=== PATIENT | female | born 1955 | race Caucasian/White ===

== ENCOUNTER 2024-05-29 10:42 | Observation (INO) | payer MEDICARE ==
[2024-05-29 11:51] LABS: Absolute Neutrophil Ct (ANC) 6.43 x10^3/uL (1.56-6.13); BASOPHIL % 0.1 % (0.1-1.2); Basophil (Absolute #) 0.01 x10^3/uL (0.01-0.08); Eosinophil % 0.3 % (0.7-5.8); Eosinophil (Absolute #) 0.02 x10^3/uL (0.04-0.36); Hematocrit 28.4 % (34.1-44.9); Hemoglobin 8.7 g/dL (11.2-15.7); IMMATURE GRAN % 1.3 % (0.001-0.429); Lymphocyte (Absolute #) 0.57 x10^3/uL (1.18-3.74); Lymphocytes % 7.6 % (19.3-51.7); Mean Cell Volume 91.9 fL (79.4-94.8); Mean Corpuscular Hemoglobin 28.2 pg (25.6-32.2); Mean Corpuscular Hgb Concent. 30.6 g/dL (32.2-35.5); Mean Platelet Volume 9.2 fL (9.4-12.3); Monocyte (Absolute #) 0.36 x10^3/uL (0.24-0.86); Monocytes % 4.8 % (4.7-12.5); Neutrophil % 85.9 % (34.0-71.1); Platelet Count 194 x10^3/uL (182-369); Red Blood Count 3.09 x10^6/uL (3.93-5.22); Red Cell Distribution Width 16.3 % (11.7-14.4); White Blood Count 7.5 x10^3/uL (3.98-10.04)
[2024-05-29 12:26] LABS: ALBUMIN 3.1 g/dL (3.5-5.0); ANION GAP 6.8 MEQ/L (5-15); BILIRUBIN,TOTAL 0.4 mg/dL (0.2-1.3); Calcium 8.2 mg/dL (8.4-10.2); Creatinine 1 0.81 mg/dL (0.52-1.04); Potassium 3.7 mmol/L (3.5-5.1); Total Protein 5.4 g/dL (6.3-8.2)
--- NOTE | 2024-05-29 12:31 | ERPHSYRPT ---
- History of Present Illness Time Seen by Provider: 05/29/24 10:45 Source: patient, EMS Patient Subjective Stated Complaint: PATIENT REPORTS SHE IS HERE FOR AFIB Triage Nursing Assessment: PATIENT IS ALERT & ORIENTED X3, PATIENT HAS EQUAL INTACT PULSES BILATERAL UPPER AND LOWER EXTREMITIES. PATIENT DOES USE ACCESSORY MUSCLES FOR BREATHING. PATIENT NOTES SHORTNESS OF BREATH AT BASELINE WITH NO CHANGE. 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 PATIENT REPORTS 9/10 SHARP PAIN TO GENERALIZED RIGHT LEG THAT STARTED THIS MORNING, UNKNOWN TIME. PATIENT REPORTS SON IS MENTALLY AND PHYSICALLY ABUSIVE TO HER. Physician History: 69 years old female with history of COPD with chronic respiratory failure on 6 L oxygen, atrial fibrillation on Eliquis, was recently discharged from hospital in [place] is brought in the ER as patient and her son are having arguments and she is unable to take care of herself. Patient reports "I have A-fib". Has shortness of breath at her baseline which according to her is not any worse than usual. She does have wheezing and some accessory muscle use. No fever or c hills reported. No abdominal pain nausea or vomiting. Patient is not a good historian and history is limited. Allergies/Adverse Reactions: latex Allergy (Unknown, Verified 05/29/24 13:52) Home Medications: ARIPiprazole [Aripiprazole] 10 mg PO DAILY 05/29/24 [History] Albuterol Sulfate [Albuterol Sulfate Hfa] 2 puffs IH Q4-6HPRN PRN 05/29/24 [History] Albuterol/Ipratropium 3ml Neb* [DUONEB 0.5-3 MG/3 ml Neb] 3 ml IH Q6-8HPRN PRN 05/29/24 [History] Apixaban [Eliquis] 5 mg PO BID 05/29/24 [History] Atorvastatin Calcium 40 mg PO DAILY 05/29/24 [History] Budesonide/Formoterol Fumarate [Budesonide-Formoterol 160-4.5] 10.2 gm IH BID 05/29/24 [History] Bumetanide 1 mg [Bumex 1 mg] 1 mg PO DAILY 05/29/24 [History] Clopidogrel Bisulfate [Clopidogrel] 75 mg PO DAILY 05/29/24 [History] Empagliflozin [Jardiance] 10 mg PO DAILY 05/29/24 [History] Ferrous Sulfate [Ferosul] 325 mg PO BREAKFAST 05/29/24 [History] Fluoxetine HCl 40 mg PO DAILY 05/29/24 [History] Levetiracetam [Keppra] 500 mg PO BID 05/29/24 [History] Lisinopril 20 mg [Zestril 20 MG] 20 mg PO DAILY 05/29/24 [History] Metoprolol Tartrate 25 mg [Lopressor 25MG Tab] 25 mg PO BID 05/29/24 [History] PANTOPRAZOLE 40 mg Tablet [Protonix 40MG Tablet] 40 mg PO BID 05/29/24 [History] Prednisone 10 mg [Deltasone 10 mg] 10 mg PO UD 05/29/24 [History] Quetiapine Fumarate [Seroquel] 200 mg PO HS 05/29/24 [History] Roflumilast 500 mcg PO DAILY 05/29/24 [History] Tizanidine HCl 4 mg [Zanaflex 4 MG] 4 mg PO BID 05/29/24 [History] Travel Risk - International Travel Have you traveled outside of the country in past 3 weeks: No - Emerging Infectious Disease Are you exhibiting symptoms associated with any current EIDs: No - Review of Systems Constitutional: Fatigue, Weakness Eyes: No Symptoms Ears, Nose, & Throat: Nose Congestion Respiratory: Cough, Dyspnea, Dyspnea on Exertion (VELAZQUEZ), Wheezing Cardiac: Palpitations Abdominal/Gastrointestinal: No Symptoms Genitourinary Symptoms: No Symptoms Musculoskeletal: Arthralgias Endocrine: No Symptoms - Past Medical History Neurological History: Seizures ENT History: Macular Degeneration Cardiac History: Other Musculoskeletal History: Osteoporosis Other Medical History: AFIB - Past Surgical History Past Surgical History: Yes Musculoskeletal: Other Other Surgical History: ANKLE SURGERY - Social History Smoking Status: Former smoker Exposure to second hand smoke: Yes Drug Use: none - Social Determinants of Health Will the patient participate in the screening: Yes Do you worry about a steady place to live?: No Do you have any problems with any of the following?: No known problems In the past 12 months,have you had to go without utilities?: Yes Transportation Issues: Yes Has anyone in your support network made you feel unsafe?: Yes Have you or anyone in your house had to go w/o enough food: Yes Comment: PATIENT REPORTS SON IS A HARM TO HER PHYSICAL AND MENTAL SAFETY - Nursing Vital Signs Nursing Vital Signs: Initial Vital Signs Temperature 96.9 F 05/29/24 10:45 Pulse Rate 82 05/29/24 10:45 Respiratory Rate 24 05/29/24 10:45 Blood Pressure 104/59 05/29/24 10:45 O2 Sat by Pulse Oximetry 100 05/29/24 10:45 Pain Scale Pain Intensity 0 - Physical Exam General Appearance: mild distress, alert Eye Exam: PERRL/EOMI Ears, Nose, Throat Exam: pharyngeal erythema Neck Exam: normal inspection, supple, full range of motion Respiratory Exam: diminished breath sounds, accessory muscle use, rhonchi, wheezing Cardiovascular Exam: regular rate/rhythm, normal heart sounds Gastrointestinal/Abdomen Exam: soft, normal bowel sounds, No tenderness Extremity Exam: normal inspection Neurologic Exam: alert, oriented x 3, cooperative Skin Exam: normal color SpO2 Interpretation: O2 applied SpO2: 100 O2 Delivery: Nasal Cannula (6 L) Ordered Tests: Active Orders 24 hr Category Date Time Status EKG-ER Only STAT Care 05/29/24 12:15 Active Townsend [Catheter-Redfield Townsend] STAT Care 05/29/24 13:25 Active IV Insertion STAT Care 05/29/24 12:15 Active ACO SDOH Referral ONCE Cons 05/29/24 11:52 Active CHEST 1 VIEW (PORTABLE) Stat Exams 05/29/24 12:16 Completed BLOOD CULTURE Stat Lab 05/29/24 12:54 Received BNPII [NT PRO BNPII] Stat Lab 05/29/24 11:22 Completed CBC W DIFF Stat Lab 05/29/24 11:30 Completed CMP Stat Lab 05/29/24 11:30 Completed CULTURE,URINE Stat Lab 05/29/24 13:34 Received Lactic Acid Stat Lab 05/29/24 12:45 Completed MAGNESIUM Stat Lab 05/29/24 11:30 Completed TROPONIN Q4H Lab 05/29/24 12:54 Completed TROPONIN Q4H Lab 05/29/24 16:15 Ordered TROPONIN Q4H Lab 05/29/24 20:15 Ordered UA W/RFX UR CULTURE Stat Lab 05/29/24 13:34 Completed Transfer Order Routine Transfer 05/29/24 Ordered Medication Summary Generic Name Dose Route Start Last Admin Trade Name Freq PRN Reason Stop Dose Admin Magnesium Sulfate/Dextrose 100 mls @ 100 mls/hr 05/29/24 12:45 05/29/24 16:13 Magnesium 1 Gm / 100 Ml D5w IV 05/29/24 14:44 Infused Q1H MARLY Infusion Discontinued Medications Generic Name Dose Route Start Last Admin Trade Name Brian PRN Reason Stop Dose Admin Albuterol/Ipratropium 3 ml 05/29/24 12:16 05/29/24 12:43 Ipratropium/Albuterol Sulfate 3 Ml Ampul.Neb IH 05/29/24 12:17 3 ml STAT ONE Administration Albuterol/Ipratropium Confirm 05/29/24 12:42 Ipratropium/Albuterol Sulfate 3 Ml Ampul.Neb Administered 05/29/24 12:43 Dose 3 ml IH .STK-MED ONE Sodium Chloride 500 mls @ 500 mls/hr 05/29/24 12:46 05/29/24 14:14 Sodium Chloride 0.9% 500 Ml IV 05/29/24 13:45 Infused .Q1H ONE Infusion Sodium Chloride Confirm 05/29/24 13:04 Sodium Chloride 0.9% 500 Ml Administered 05/29/24 13:05 Dose 500 mls @ ud IV .STK-MED ONE Ceftriaxone Sodium 2 gm in 100 mls @ 200 mls/hr 05/29/24 14:56 05/29/24 16:13 Rocephin 2 Gm/100 Ml Nacl IV 05/29/24 15:25 Infused STAT ONE Infusion Ceftriaxone Sodium Confirm 05/29/24 15:27 Rocephin 2 Gm/100 Ml Nacl Administered 05/29/24 15:28 Dose 2 gm in 100 mls @ ud IV .STK-MED ONE Lab/Rad Data: Laboratory Result Diagrams 05/29/24 11:30 05/29/24 11:30 Laboratory Results 05/29/24 05/29/24 05/29/24 Range/Units 13:34 13:05 12:54 WBC (3.98-10.04) x10^3/uL RBC (3.93-5.22) x10^6/uL Hgb (11.2-15.7) g/dL Hct (34.1-44.9) % MCV (79.4-94.8) fL MCH (25.6-32.2) pg MCHC (32.2-35.5) g/dL RDW (11.7-14.4) % Plt Count (182-369) x10^3/uL MPV (9.4-12.3) fL Gran % (34.0-71.1) % Immature Gran % (Auto) (0.001-0.429) % Nucleat RBC Rel Count (0.00-0.2) % Eos # (Auto) (0.04-0.36) x10^3/uL Immature Gran # (Auto) (0.001-0.031) x10^3u/L Absolute Lymphs (auto) (1.18-3.74) x10^3/uL Absolute Monos (auto) (0.24-0.86) x10^3/uL Absolute Nucleated RBC (0.00-0.012) x10^3u/L Lymphocytes % (19.3-51.7) % Monocytes % (4.7-12.5) % Eosinophils % (0.7-5.8) % Basophils % (0.1-1.2) % Absolute Granulocytes (1.56-6.13) x10^3/uL Basophils # (0.01-0.08) x10^3/uL Sodium (135-145) mmol/L Potassium (3.5-5.1) mmol/L Chloride (98-107) mmol/L Carbon Dioxide (22-30) mmol/L Anion Gap (5-15) MEQ/L BUN (7-17) mg/dL Creatinine (0.52-1.04) mg/dL Estimated GFR ML/MIN Glucose (74-106) mg/dL Lactic Acid (0.4-2.0) Calcium (8.4-10.2) mg/dL Magnesium (1.6-2.3) mg/dL Total Bilirubin (0.2-1.3) mg/dL AST (14-36) U/L ALT (0-35) U/L Alkaline Phosphatase (38-126) U/L Troponin I 0.027 (0.000-0.033) ng/mL NT-Pro-B Natriuret Pep (<300) pg/mL Serum Total Protein (6.3-8.2) g/dL Albumin (3.5-5.0) g/dL Urine Color Yellow (Yellow) Urine Appearance Clear (Clear) Urine pH 5.5 (4.6-8.0) Ur Specific [place] 1.015 (1.005-1.030) Urine Protein Trace A (Negative) Urine Glucose (UA) 100 A (Negative) mg/dL Urine Ketones Negative (Negative) Urine Blood Moderate A (Negative) Urine Nitrite Negative (Negative) Urine Bilirubin Negative (Negative) Urine Urobilinogen 0.2 (0.2) mg/dL Ur Leukocyte Esterase Moderate A (Negative) U Hyaline Cast (Auto) 3-5 A (0-2) /LPF Urine Microscopic RBC 3-5 (0-5) /HPF Urine Microscopic WBC 11-20 A (0-5) /HPF Ur Epithelial Cells Few (None Seen) /HPF Urine Bacteria Many A (None Seen) /HPF Urine Culture Reflexed YES (NO) Influenza Type A Ag NEGATIVE (NEGATIVE) Influenza Type B Ag NEGATIVE (NEGATIVE) RSV (PCR) NEGATIVE (NEGATIVE) SARS-CoV-2 (PCR) NEGATIVE (NEGATIVE) 05/29/24 05/29/24 05/29/24 Range/Units 12:45 11:30 11:30 WBC 7.5 (3.98-10.04) x10^3/uL RBC 3.09 L (3.93-5.22) x10^6/uL Hgb 8.7 L (11.2-15.7) g/dL Hct 28.4 L (34.1-44.9) % MCV 91.9 (79.4-94.8) fL MCH 28.2 (25.6-32.2) pg MCHC 30.6 L (32.2-35.5) g/dL RDW 16.3 H (11.7-14.4) % Plt Count 194 (182-369) x10^3/uL MPV 9.2 L (9.4-12.3) fL Gran % 85.9 H (34.0-71.1) % Immature Gran % (Auto) 1.3 H (0.001-0.429) % Nucleat RBC Rel Count 0.0 (0.00-0.2) % Eos # (Auto) 0.02 L (0.04-0.36) x10^3/uL Immature Gran # (Auto) 0.10 H (0.001-0.031) x10^3u/L Absolute Lymphs (auto) 0.57 L (1.18-3.74) x10^3/uL Absolute Monos (auto) 0.36 (0.24-0.86) x10^3/uL Absolute Nucleated RBC 0.00 (0.00-0.012) x10^3u/L Lymphocytes % 7.6 L (19.3-51.7) % Monocytes % 4.8 (4.7-12.5) % Eosinophils % 0.3 L (0.7-5.8) % Basophils % 0.1 (0.1-1.2) % Absolute Granulocytes 6.43 H (1.56-6.13) x10^3/uL Basophils # 0.01 (0.01-0.08) x10^3/uL Sodium 139 (135-145) mmol/L Potassium 3.7 (3.5-5.1) mmol/L Chloride 98 (98-107) mmol/L Carbon Dioxide 38 H (22-30) mmol/L Anion Gap 6.8 (5-15) MEQ/L BUN 27 H (7-17) mg/dL Creatinine 0.81 (0.52-1.04) mg/dL Estimated GFR 79.0 ML/MIN Glucose 98 (74-106) mg/dL Lactic Acid 0.4 (0.4-2.0) Calcium 8.2 L (8.4-10.2) mg/dL Magnesium 1.2 L (1.6-2.3) mg/dL Total Bilirubin 0.40 (0.2-1.3) mg/dL AST 23 (14-36) U/L ALT 26 (0-35) U/L Alkaline Phosphatase 52 (38-126) U/L Troponin I (0.000-0.033) ng/mL NT-Pro-B Natriuret Pep (<300) pg/mL Serum Total Protein 5.4 L (6.3-8.2) g/dL Albumin 3.1 L (3.5-5.0) g/dL Urine Color (Yellow) Urine Appearance (Clear) Urine pH (4.6-8.0) Ur Specific [place] (1.005-1.030) Urine Protein (Negative) Urine Glucose (UA) (Negative) mg/dL Urine Ketones (Negative) Urine Blood (Negative) Urine Nitrite (Negative) Urine Bilirubin (Negative) Urine Urobilinogen (0.2) mg/dL Ur Leukocyte Esterase (Negative) U Hyaline Cast (Auto) (0-2) /LPF Urine Microscopic RBC (0-5) /HPF Urine Microscopic WBC (0-5) /HPF Ur Epithelial Cells (None Seen) /HPF Urine Bacteria (None Seen) /HPF Urine Culture Reflexed (NO) Influenza Type A Ag (NEGATIVE) Influenza Type B Ag (NEGATIVE) RSV (PCR) (NEGATIVE) SARS-CoV-2 (PCR) (NEGATIVE) 05/29/24 Range/Units 11:22 WBC (3.98-10.04) x10^3/uL RBC (3.93-5.22) x10^6/uL Hgb (11.2-15.7) g/dL Hct (34.1-44.9) % MCV (79.4-94.8) fL MCH (25.6-32.2) pg MCHC (32.2-35.5) g/dL RDW (11.7-14.4) % Plt Count (182-369) x10^3/uL MPV (9.4-12.3) fL Gran % (34.0-71.1) % Immature Gran % (Auto) (0.001-0.429) % Nucleat RBC Rel Count (0.00-0.2) % Eos # (Auto) (0.04-0.36) x10^3/uL Immature Gran # (Auto) (0.001-0.031) x10^3u/L Absolute Lymphs (auto) (1.18-3.74) x10^3/uL Absolute Monos (auto) (0.24-0.86) x10^3/uL Absolute Nucleated RBC (0.00-0.012) x10^3u/L Lymphocytes % (19.3-51.7) % Monocytes % (4.7-12.5) % Eosinophils % (0.7-5.8) % Basophils % (0.1-1.2) % Absolute Granulocytes (1.56-6.13) x10^3/uL Basophils # (0.01-0.08) x10^3/uL Sodium (135-145) mmol/L Potassium (3.5-5.1) mmol/L Chloride (98-107) mmol/L Carbon Dioxide (22-30) mmol/L Anion Gap (5-15) MEQ/L BUN (7-17) mg/dL Creatinine (0.52-1.04) mg/dL Estimated GFR ML/MIN Glucose (74-106) mg/dL Lactic Acid (0.4-2.0) Calcium (8.4-10.2) mg/dL Magnesium (1.6-2.3) mg/dL Total Bilirubin (0.2-1.3) mg/dL AST (14-36) U/L ALT (0-35) U/L Alkaline Phosphatase (38-126) U/L Troponin I (0.000-0.033) ng/mL NT-Pro-B Natriuret Pep 3390 (<300) pg/mL Serum Total Protein (6.3-8.2) g/dL Albumin (3.5-5.0) g/dL Urine Color (Yellow) Urine Appearance (Clear) Urine pH (4.6-8.0) Ur Specific [place] (1.005-1.030) Urine Protein (Negative) Urine Glucose (UA) (Negative) mg/dL Urine Ketones (Negative) Urine Blood (Negative) Urine Nitrite (Negative) Urine Bilirubin (Negative) Urine Urobilinogen (0.2) mg/dL Ur Leukocyte Esterase (Negative) U Hyaline Cast (Auto) (0-2) /LPF Urine Microscopic RBC (0-5) /HPF Urine Microscopic WBC (0-5) /HPF Ur Epithelial Cells (None Seen) /HPF Urine Bacteria (None Seen) /HPF Urine Culture Reflexed (NO) Influenza Type A Ag (NEGATIVE) Influenza Type B Ag (NEGATIVE) RSV (PCR) (NEGATIVE) SARS-CoV-2 (PCR) (NEGATIVE) - Progress Progress: improved Progress Note: 05/29/24 15:52 69 years old with multiple medical problems including COPD with chronic respiratory failure is evaluated in the ER for generalized weakness. Patient has diffuse wheezing, given DuoNeb, feeling better on reevaluation. She was mildly hypotensive and given fluid bolus for gentle hydration EKG did not show any acute ST elevation and has negative initial troponin. Has a hemoglobin of 8.7, no previous comparison available. Record from [facility] is pending. Chest x-ray showed chronic changes with some cardiomegaly and mild congestion but no acute infiltrative process. Has a magnesium of 1.2 and started on IV replacement. Has potassium at 3.7. Does have UTI and started on Rocephin. COVID flu and RSV are negative. Discussed with hospitalist Dr. Godoy and patient is being admitted. I have shared the results of workup with patient and plan of admission which she understands and agrees. Complexity of problems addressed: Moderate acute Complexity of data reviewed and analyzed: Moderate risk of complications/morbidity/mortality of patient management: Moderate to high risk Social determinants of health: May impede follow-up Discussed with Dr.: Other (Dr. Godoy hospitalist) Will see patient in: hospital (observation) Counseled pt/family regarding: lab results, diagnosis, rad results Medical Desision Making - Independent Historian Additional History obtained from: Infant Nanny/EMT - External Record(s) Reviewed Records reviewed as a part of evaluation & management: Inpatient, Discharge Summary, EMS - Discussion of managment Care discussed with:: specialist Reviewed:: Test results Agreed on:: Treatment plan, place in obs Will see patient: in hospital - Diagnostic Testing Diagnostic test were ordered, analyzed, and reviewed by me: Yes Radiological Interpretation: Interpreted by me, Reviewed by me - Risk of complications The pt has a mod risk of morbidity or mortality based on: Need for prescription drug management, Diagnosis or treatment limited by SDOH The pt has a high risk of morbidity or mortality based on: Decision regarding hospitilization or escalation of hosp level of care - Departure Departure Disposition: Observation Clinical Impression: Acute UTI (urinary tract infection), General weakness, COPD (chronic obstructive pulmonary disease), Hypomagnesemia Condition: Stable Critical Care Time: No Referrals: DOCTOR,NO FAMILY [Primary Care Provider] - Follow up/PCP as directed Instructions: Chronic Obstructive Pulmonary Disease
[2024-05-29 12:41] LABS: MAGNESIUM 1.2 mg/dL (1.6-2.3)
[2024-05-29] MEDS ORDERED: DUONEB 0.5-3 MG/3 ml Neb IH ONE (12:42)
[2024-05-29] MEDS: DUONEB 0.5-3 MG/3 ml Neb IH ONE (12:43)
--- NOTE | 2024-05-29 12:55 | XRAY ---
Indication: Short of breath. Comparison: None Portable chest demonstrates cardiomegaly, central vascular prominence, and mild pulmonary edema. No consolidation/large effusion. Minimal bilateral midlung discoid atelectasis/scarring. Bony thorax intact with osteopenia, mild degenerative changes, and minimal levoscoliosis
[2024-05-29] MEDS ORDERED: Sodium Chloride 0.9% 500 ML 500 ML IV ONE (13:04)
[2024-05-29] MEDS ORDERED: Magnesium 1 Gm / 100 Ml D5W*** 100 ML IV ONE ×2 (13:04→13:47)
[2024-05-29] MEDS: Sodium Chloride 0.9% 500 ML 500 ML IV ONE (13:07)
[2024-05-29] MEDS: Magnesium 1 Gm / 100 Ml D5W*** 100 ML IV SCH (13:07)
[2024-05-29 13:49] LABS: INFLUENZA A NEGATIVE (NEGATIVE); INFLUENZA B NEGATIVE (NEGATIVE); RESPIRATORY SYNCTIAL VIRUS NEGATIVE (NEGATIVE); SARS-CoV-2 Xpert Express NEGATIVE (NEGATIVE)
[2024-05-29 14:45] LABS: Appearance Clear (Clear); Bacteria Many /HPF (None Seen); Bilirubin Negative (Negative); Blood Moderate (Negative); Epithelial Cells Few /HPF (None Seen); Glucose, Urine 100 mg/dL (Negative); Ketones Negative (Negative); Leukocyte Esterase Moderate (Negative); Nitrite Negative (Negative); Ph 5.5 (4.6-8.0); Protein,Urine Dip Trace (Negative); Specific Gravity 1.015 (1.005-1.030); Urobilinogen 0.2 mg/dL (0.2)
[2024-05-29] MEDS ORDERED: ROCEPHIN 2 GM/100 ML NACL 2 GM/100 ML IVPB IV ONE (15:27)
[2024-05-29] MEDS: ROCEPHIN 2 GM/100 ML NACL 2 GM/100 ML IVPB IV ONE (15:27)
[2024-05-29 17:02] LABS: Slide Review 1 YES
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
[2024-05-29] MEDS ORDERED: VENTOLIN COMMON CANISTER IH PRN (18:25)
[2024-05-29] MEDS ORDERED: DUONEB 0.5-3 MG/3 ml Neb IH PRN (18:25)
[2024-05-29] MEDS: PATIENT OWN MEDICATION IH SCH (19:11)
[2024-05-29 20:55] LABS: Iron 47 ug/dL (37-170); Iron Saturation 18 % (20-39); TIBC 257 ug/dL (265-462)
[2024-05-29 21:53] LABS: Ferritin 55.8 ng/mL (11.1-264); Folate (Folic Acid) 7.72 ng/mL (2.76 - >20)
[2024-05-29] MEDS ORDERED: NON-FORMULARY ITEM (Budesonide/Formoterol Fumarate [Budesonide-Formoterol 160-4.5] 10.2 GM IH SCH (22:00)
[2024-05-29] MEDS ORDERED: NON-FORMULARY ITEM (Apixaban [Eliquis] 5 MG Tablet) PO SCH (22:00)
[2024-05-29] MEDS ORDERED: QUETIAPINE FUMARATE 200 MG PO SCH (22:00)
[2024-05-29] MEDS: KEPPRA PO SCH (22:31)
[2024-05-29] MEDS: ELIQUIS 2.5 MG TABLET PO SCH (22:31)
[2024-05-29] MEDS: Protonix 40MG Tablet PO SCH (22:31)
[2024-05-29] MEDS: Seroquel 100 MG PO SCH (22:31)
[2024-05-29] MEDS: Lopressor 25MG Tab PO SCH (22:32)
[2024-05-29] MEDS: Zanaflex 4 MG PO SCH (22:32)
[2024-05-29] MEDS: solu-MEDROL 40 MG, Sterile H2O 10 ml 1 ML IV SCH (22:32)
[2024-05-30 05:01] LABS: Hematocrit 27.9 % (34.1-44.9); Hemoglobin 8.5 g/dL (11.2-15.7); Mean Cell Volume 91.5 fL (79.4-94.8); Mean Corpuscular Hemoglobin 27.9 pg (25.6-32.2); Mean Corpuscular Hgb Concent. 30.5 g/dL (32.2-35.5); Mean Platelet Volume 9.6 fL (9.4-12.3); Platelet Count 168 x10^3/uL (182-369); Red Blood Count 3.05 x10^6/uL (3.93-5.22); Red Cell Distribution Width 16.2 % (11.7-14.4); White Blood Count 5.8 x10^3/uL (3.98-10.04)
[2024-05-30 05:33] LABS: ALBUMIN 3.1 g/dL (3.5-5.0); ANION GAP 8.6 MEQ/L (5-15); BILIRUBIN,TOTAL 0.4 mg/dL (0.2-1.3); Calcium 8.1 mg/dL (8.4-10.2); Creatinine 1 0.67 mg/dL (0.52-1.04); EST GLOMERULAR FILTRATION RATE 95.2 ML/MIN; MAGNESIUM 1.6 mg/dL (1.6-2.3); Potassium 4.1 mmol/L (3.5-5.1); Total Protein 5.4 g/dL (6.3-8.2)
[2024-05-30] MEDS ORDERED: Advair Hfa 230/21 Mcg COMMON CANISTER IH SCH (07:00)
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
[2024-05-30] MEDS ORDERED: NON-FORMULARY ITEM (Fluoxetine Hcl [Fluoxetine Hcl] 40 MG Capsule) PO SCH (10:00)
[2024-05-30] MEDS ORDERED: LIPITOR 40MG PO SCH (10:00)
[2024-05-30] MEDS: FEOSOL 325 MG PO SCH (10:49)
[2024-05-30] MEDS: ZOCOR 20MG PO SCH (10:49)
[2024-05-30] MEDS: BUMEX 1 MG PO SCH (10:49)
[2024-05-30] MEDS: Abilify 10 MG PO SCH (10:49)
[2024-05-30] MEDS: Prozac 20 MG PO SCH (10:49)
[2024-05-30] MEDS: PLAVIX Tablet PO SCH (10:50)
[2024-05-30] MEDS: ROCEPHIN 1 GM / 100 ML NaCl 1 GM/100 ML IVPB IV SCH (10:50)
[2024-05-30] MEDS: Zestril 20 MG PO SCH (10:50)
[2024-05-30] MEDS: JARDIANCE PO SCH (10:50)
[2024-05-30] MEDS: DALIRESP PO SCH (11:01)
[2024-05-30] MEDS ORDERED: Advair Hfa 115/21 Common canister IH SCH (19:00)
[2024-05-30] MEDS: TYLENOL 325 MG PO PRN (20:34)
[2024-05-31 06:05] LABS: Hemoglobin 8.6 g/dL (11.2-15.7); Mean Cell Volume 90.6 fL (79.4-94.8); Mean Corpuscular Hemoglobin 27.8 pg (25.6-32.2); Mean Corpuscular Hgb Concent. 30.7 g/dL (32.2-35.5); Mean Platelet Volume 9.5 fL (9.4-12.3); Platelet Count 180 x10^3/uL (182-369); Red Blood Count 3.09 x10^6/uL (3.93-5.22); Red Cell Distribution Width 16.1 % (11.7-14.4); White Blood Count 4.3 x10^3/uL (3.98-10.04)
[2024-05-31 06:22] LABS: ALBUMIN 3.2 g/dL (3.5-5.0); ANION GAP 9.9 MEQ/L (5-15); BILIRUBIN,TOTAL 0.2 mg/dL (0.2-1.3); Creatinine 1 0.73 mg/dL (0.52-1.04); EST GLOMERULAR FILTRATION RATE 89.5 ML/MIN; Potassium 3.6 mmol/L (3.5-5.1); Total Protein 5.6 g/dL (6.3-8.2)
[2024-05-31] MEDS: Tums EX 750 MG PO SCH (09:16)
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
[2024-05-31] MEDS: DUONEB 0.5-3 MG/3 ml Neb IH PRN (19:08)
[2024-06-01 06:14] LABS: Hemoglobin 9.4 g/dL (11.2-15.7); Mean Cell Volume 89.3 fL (79.4-94.8); Mean Corpuscular Hgb Concent. 31.3 g/dL (32.2-35.5); Mean Platelet Volume 9.5 fL (9.4-12.3); Platelet Count 190 x10^3/uL (182-369); Red Blood Count 3.36 x10^6/uL (3.93-5.22); Red Cell Distribution Width 15.7 % (11.7-14.4); White Blood Count 5.5 x10^3/uL (3.98-10.04)
[2024-06-01 06:40] LABS: ALBUMIN 3.3 g/dL (3.5-5.0); ANION GAP 10.6 MEQ/L (5-15); BILIRUBIN,TOTAL 0.2 mg/dL (0.2-1.3); Calcium 8.1 mg/dL (8.4-10.2); Potassium 3.5 mmol/L (3.5-5.1); Total Protein 5.6 g/dL (6.3-8.2)
[2024-06-01 06:44] LABS: Creatinine 1 0.62 mg/dL (0.52-1.04); EST GLOMERULAR FILTRATION RATE 96.9 ML/MIN
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
[2024-06-02] MEDS: LOPRESSOR INJECTION IV ONE ×2 (00:03→00:23)
[2024-06-02] MEDS: Cardizem IV 50 MG/10 ML IV ONE (01:02)
[2024-06-02] MEDS ORDERED: Sodium Chloride 0.9% 1000 ML 1,000 ML ONE (01:14)
[2024-06-02] MEDS: Sodium Chloride 0.9% 1000 ML 1,000 ML IV STA (01:19)
[2024-06-02] MEDS: Sodium Chloride 0.9% 1000 ML 1,000 ML IV SCH (02:08)
[2024-06-02] MEDS: CARDIZEM DRIP 100 MG/100 ML D5W 100 ML IV PRN (02:15)
[2024-06-02 06:44] LABS: Hematocrit 31.9 % (34.1-44.9); Hemoglobin 9.9 g/dL (11.2-15.7); Mean Cell Volume 90.9 fL (79.4-94.8); Mean Corpuscular Hemoglobin 28.2 pg (25.6-32.2); Mean Platelet Volume 9.9 fL (9.4-12.3); Platelet Count 95 x10^3/uL (182-369); Red Blood Count 3.51 x10^6/uL (3.93-5.22)
[2024-06-02 06:47] LABS: ALBUMIN 3.4 g/dL (3.5-5.0); BILIRUBIN,TOTAL 0.3 mg/dL (0.2-1.3); Calcium 8.4 mg/dL (8.4-10.2); Creatinine 1 0.56 mg/dL (0.52-1.04); EST GLOMERULAR FILTRATION RATE 99.4 ML/MIN; Total Protein 5.9 g/dL (6.3-8.2)
[2024-06-02 07:09] LABS: Slide Review YES
[2024-06-02] MEDS: MAG-OX 400 PO ONE (08:50)
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
[2024-06-03 05:10] LABS: Hematocrit 30.8 % (34.1-44.9); Hemoglobin 9.4 g/dL (11.2-15.7); Mean Cell Volume 92.8 fL (79.4-94.8); Mean Corpuscular Hemoglobin 28.3 pg (25.6-32.2); Mean Corpuscular Hgb Concent. 30.5 g/dL (32.2-35.5); Mean Platelet Volume 9.6 fL (9.4-12.3); Platelet Count 191 x10^3/uL (182-369); Red Blood Count 3.32 x10^6/uL (3.93-5.22); Red Cell Distribution Width 15.8 % (11.7-14.4); White Blood Count 6.2 x10^3/uL (3.98-10.04)
[2024-06-03 05:27] LABS: ALBUMIN 3.2 g/dL (3.5-5.0); ANION GAP 9.7 MEQ/L (5-15); BILIRUBIN,TOTAL 0.3 mg/dL (0.2-1.3); Calcium 8.4 mg/dL (8.4-10.2); Creatinine 1 0.6 mg/dL (0.52-1.04); EST GLOMERULAR FILTRATION RATE 97.7 ML/MIN; MAGNESIUM 1.2 mg/dL (1.6-2.3); Potassium 4.3 mmol/L (3.5-5.1); Total Protein 5.5 g/dL (6.3-8.2)
[2024-06-03] MEDS: Magnesium 1 Gm / 100 Ml D5W*** 100 ML IV SCH (08:16)
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
--- NOTE | 2024-06-03 13:36 | XRAY ---
Indication: Increasing coughing and short of breath. Comparison: May 29, 2024 Portable chest demonstrates grossly stable cardiomegaly, mild central vascular prominence, mild pulmonary edema, and left midlung subsegmental atelectasis/scarring. No new cardiopulmonary abnormalities. New small hiatal hernia.
[2024-06-03] MEDS ORDERED: MAG-OX 400 PO ONE (15:12)
[2024-06-04 05:55] LABS: Hematocrit 33.4 % (34.1-44.9); Hemoglobin 10.1 g/dL (11.2-15.7); Mean Cell Volume 92.8 fL (79.4-94.8); Mean Corpuscular Hemoglobin 28.1 pg (25.6-32.2); Mean Corpuscular Hgb Concent. 30.2 g/dL (32.2-35.5); Mean Platelet Volume 9.2 fL (9.4-12.3); Platelet Count 236 x10^3/uL (182-369); Red Cell Distribution Width 15.7 % (11.7-14.4); White Blood Count 7.6 x10^3/uL (3.98-10.04)
[2024-06-04 07:25] LABS: ALBUMIN 3.6 g/dL (3.5-5.0); ANION GAP 12.2 MEQ/L (5-15); BILIRUBIN,TOTAL 0.3 mg/dL (0.2-1.3); Calcium 8.4 mg/dL (8.4-10.2); Creatinine 1 0.81 mg/dL (0.52-1.04); MAGNESIUM 1.5 mg/dL (1.6-2.3); Potassium 4.3 mmol/L (3.5-5.1); Total Protein 6.1 g/dL (6.3-8.2)
[2024-06-04] MEDS: MAGNESIUM SULF 2 G/50 ML BAG 2 GM/50 ML PIGGYBACK IV ONE (09:29)
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
[2024-06-05 05:57] LABS: Hematocrit 32.8 % (34.1-44.9); Hemoglobin 10.1 g/dL (11.2-15.7); Mean Cell Volume 92.1 fL (79.4-94.8); Mean Corpuscular Hemoglobin 28.4 pg (25.6-32.2); Mean Corpuscular Hgb Concent. 30.8 g/dL (32.2-35.5); Mean Platelet Volume 9.3 fL (9.4-12.3); Platelet Count 226 x10^3/uL (182-369); Red Blood Count 3.56 x10^6/uL (3.93-5.22); Red Cell Distribution Width 15.6 % (11.7-14.4); White Blood Count 8.5 x10^3/uL (3.98-10.04)
[2024-06-05 07:06] LABS: Calcium 8.4 mg/dL (8.4-10.2); Creatinine 1 0.7 mg/dL (0.52-1.04); EST GLOMERULAR FILTRATION RATE 94.2 ML/MIN; MAGNESIUM 1.7 mg/dL (1.6-2.3); Potassium 4.3 mmol/L (3.5-5.1)
[2024-06-05 07:16] LABS: ANION GAP 15.3 MEQ/L (5-15)
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
[2024-06-06 04:58] LABS: Hematocrit 31.5 % (34.1-44.9); Hemoglobin 9.8 g/dL (11.2-15.7); Mean Cell Volume 90.5 fL (79.4-94.8); Mean Corpuscular Hemoglobin 28.2 pg (25.6-32.2); Mean Corpuscular Hgb Concent. 31.1 g/dL (32.2-35.5); Mean Platelet Volume 9.3 fL (9.4-12.3); Platelet Count 237 x10^3/uL (182-369); Red Blood Count 3.48 x10^6/uL (3.93-5.22); Red Cell Distribution Width 15.9 % (11.7-14.4); White Blood Count 9.5 x10^3/uL (3.98-10.04)
[2024-06-06 05:42] LABS: ALBUMIN 3.5 g/dL (3.5-5.0); BILIRUBIN,TOTAL 0.3 mg/dL (0.2-1.3); Calcium 8.3 mg/dL (8.4-10.2); Creatinine 1 0.67 mg/dL (0.52-1.04); EST GLOMERULAR FILTRATION RATE 95.2 ML/MIN; Potassium 4.5 mmol/L (3.5-5.1); Total Protein 5.9 g/dL (6.3-8.2)
[2024-06-06 05:50] LABS: ANION GAP 12.5 MEQ/L (5-15)
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
[2024-06-06 12:02] VITALS: BP 147/62; PULSE 62; RESP 15; TEMP 97.5; O2SAT 94
== END 2024-06-06 15:20 ==
LOC: ED 10:42 → MED SURG 16:47 → ICU 06-02 01:00 → MED SURG 06-03 10:10
PROVIDERS: ADMIT Internal Medicine; ATTEND Internal Medicine
DX: N39.0 Urinary tract infection, site not specified (principal); B96.1 Klebsiella pneumoniae [K. pneumoniae] as the cause of diseases classified elsewhere; Z59.10 Inadequate housing, unspecified; Z59.82 Transportation insecurity; D64.9 Anemia, unspecified; T76.11XA Adult physical abuse, suspected, initial encounter; J44.9 Chronic obstructive pulmonary disease, unspecified; R53.1 Weakness; E83.42 Hypomagnesemia; I10 Essential (primary) hypertension; E66.811 Obesity, class 1; G47.30 Sleep apnea, unspecified; F32.A Depression, unspecified; G40.909 Epilepsy, unspecified, not intractable, without status epilepticus; I48.20 Chronic atrial fibrillation, unspecified; R60.0 Localized edema; Z79.01 Long term (current) use of anticoagulants; Z79.899 Other long term (current) drug therapy; J96.10 Chronic respiratory failure, unspecified whether with hypoxia or hypercapnia; L89.312 Pressure ulcer of right buttock, stage 2
CPT/HCPCS: 0241U; 36415; 51702; 71045; 80048; 80053; 81001; 82607; 82728; 82746; 83036; 83540; 83550; 83605; 83735; 83880; 84484; 85025; 85027; 85049; 87040; 87077; 87086; 87186; 90791; 93005; 93268; 93306; 94640; 94660; 94760; 97110; 97161; 97530; 99285; G0378; Q3014; J0696; J2919; J3475; A9270-GY

== ENCOUNTER 2024-06-20 18:17 | Inpatient (IN) | payer MEDICARE ==
[2024-06-20] MEDS ORDERED: DUONEB 0.5-3 MG/3 ml Neb IH ONE (18:20)
--- NOTE | 2024-06-20 18:32 | ERPHSYRPT ---
- History of Present Illness Time Seen by Provider: 06/20/24 18:17 Source: patient, EMS, halfway records Exam Limitations: no limitations Physician History: Pt states she has had a cough and trouble breathing. Pt reportedly had oxygen saturations in the 60's when EMS arrived this afternoon at the halfway. Pt was given lasix 40mg, solumedrol 125mg, NTG and a dupneb Tx and brought to this ER for treatment. Pt denies chest pain, abdominal pain, vomiting, headache. Allergies/Adverse Reactions: latex Allergy (Unknown, Verified 06/20/24 18:44) Home Medications: ARIPiprazole [Aripiprazole] 10 mg PO DAILY 05/29/24 [History] Albuterol Sulfate [Albuterol Sulfate Hfa] 2 puffs IH Q4-6HPRN PRN 05/29/24 [Hi story] Albuterol/Ipratropium 3ml Neb* [DUONEB 0.5-3 MG/3 ml Neb] 3 ml IH TID 05/29/24 [History] Apixaban [Eliquis] 5 mg PO BID 05/29/24 [History] Atorvastatin Calcium 40 mg PO DAILY 05/29/24 [History] Budesonide/Formoterol Fumarate [Budesonide-Formoterol 160-4.5] 10.2 gm IH BID 05/29/24 [History] Bumetanide 1 mg [Bumex 1 mg] 1 mg PO DAILY 05/29/24 [History] Clopidogrel Bisulfate [Clopidogrel] 75 mg PO DAILY 05/29/24 [History] Empagliflozin [Jardiance] 10 mg PO DAILY 05/29/24 [History] Ferrous Sulfate [Ferosul] 325 mg PO BREAKFAST 05/29/24 [History] Fluoxetine HCl 40 mg PO DAILY 05/29/24 [History] Levetiracetam [Keppra] 500 mg PO BID 05/29/24 [History] Lisinopril 20 mg [Zestril 20 MG] 20 mg PO DAILY 05/29/24 [History] Metoprolol Tartrate 25 mg [Lopressor 25MG Tab] 25 mg PO BID 05/29/24 [History] PANTOPRAZOLE 40 mg Tablet [Protonix 40MG Tablet] 40 mg PO BID 05/29/24 [History] Prednisone 10 mg [Deltasone 10 mg] 10 mg PO UD 05/29/24 [History] Quetiapine Fumarate [Seroquel] 200 mg PO HS 05/29/24 [History] Roflumilast 500 mcg PO DAILY 05/29/24 [History] Tizanidine HCl 4 mg [Zanaflex 4 MG] 4 mg PO BID 05/29/24 [History] Travel Risk - Emerging Infectious Disease Are you exhibiting symptoms associated with any current EIDs: No Symptoms: Cough: New Onset, Diarrhea, Headaches/Body Aches/, Loss of taste or smell, Shortness of Breath - Review of Systems Respiratory: Cough, Dyspnea Cardiac: No Chest Pain Abdominal/Gastrointestinal: No Abdominal Pain, No Vomiting Neurological: Headache - Past Medical History Neurological History: Seizures ENT History: Macular Degeneration Cardiac History: Other Musculoskeletal History: Osteoporosis Other Medical History: AFIB - Past Surgical History Past Surgical History: Yes Musculoskeletal: Other Other Surgical History: ANKLE SURGERY - Social History Smoking Status: Former smoker Exposure to second hand smoke: Yes Drug Use: none - Social Determinants of Health Will the patient participate in the screening: Yes Do you worry about a steady place to live?: No In the past 12 months,have you had to go without utilities?: Yes Transportation Issues: Yes Has anyone in your support network made you feel unsafe?: Yes Have you or anyone in your house had to go w/o enough food: Yes Comment: PATIENT REPORTS SON IS A HARM TO HER PHYSICAL AND MENTAL SAFETY - Nursing Vital Signs Nursing Vital Signs: Initial Vital Signs Pulse Rate 113 H 06/20/24 18:20 Respiratory Rate 48 H 06/20/24 18:20 O2 Sat by Pulse Oximetry 99 06/20/24 18:20 Pain Scale Pain Intensity 5 - Physical Exam General Appearance: alert Eye Exam: eyes nml inspection Ears, Nose, Throat Exam: pharyngeal erythema Neck Exam: normal inspection Respiratory Exam: wheezing (moderate diffuse wheezing with decreased air entry) Cardiovascular/Chest Exam: normal heart sounds Abdominal/Gastrointestinal Exam: normal bowel sounds Extremity Exam: swelling (+1 bilateral leg/foot edema with mild erythema and war mth of lower legs) Neurologic Exam: alert, cooperative Skin Exam: No cyanosis SpO2 Interpretation: O2 applied SpO2: 99 O2 Delivery: Non-rebreather - Course EKG Interpreted by Me: RATE (96), Right [place] Deviation, Other (QTc = 434; PVC's) Ordered Tests: Active Orders 24 hr Category Date Time Status Sewing Demonstrator STAT Care 06/20/24 18:27 Active Catheter-[place] STAT Care 06/20/24 19:05 Active EKG-ER Only STAT Care 06/20/24 18:24 Active IV Insertion STAT Care 06/20/24 18:24 Active IV Insertion-2nd Peripheral STAT Care 06/20/24 18:45 Active Pulse Oximetry (ED) STAT Care 06/20/24 18:26 Active CHEST 1 VIEW (PORTABLE) Stat Exams 06/20/24 18:25 Taken BLOOD CULTURE Stat Lab 06/20/24 18:50 Received CBC W DIFF Stat Lab 06/20/24 18:40 Completed CMP Stat Lab 06/20/24 18:40 Received CULTURE,SPUTUM Stat Lab 06/20/24 19:18 Received D-DIMER QUANTITATIVE Stat Lab 06/20/24 18:40 Completed Lactic Acid Stat Lab 06/20/24 18:25 Completed MAGNESIUM Stat Lab 06/20/24 18:40 Received NT PRO BNPII Stat Lab 06/20/24 18:40 Received TROPONIN Q4H Lab 06/20/24 18:40 Received TROPONIN Q4H Lab 06/20/24 22:30 Ordered TROPONIN Q4H Lab 06/21/24 02:30 Ordered UA W/RFX UR CULTURE Stat Lab 06/20/24 19:18 Completed VENOUS BLOOD GAS Urgent Lab 06/20/24 18:25 Completed BiPap/CPAP STAT RT 06/20/24 18:30 Active Respiratory Therapy Assessment DAILY RT 06/20/24 18:48 Active Medication Summary Generic Name Dose Route Start Last Admin Trade Name Freq PRN Reason Stop Dose Admin Magnesium Sulfate 1 gm 06/20/24 19:35 Magnesium Sulfate Injection IV 06/20/24 19:36 ONCE ONE Discontinued Medications Generic Name Dose Route Start Last Admin Trade Name Freq PRN Reason Stop Dose Admin Albuterol Sulfate 2.5 mg 06/20/24 18:28 06/20/24 18:47 Albuterol Sulfate 2.5 Mg/3 Ml Neb IH 06/20/24 18:29 Not Given STAT ONE Albuterol/Ipratropium 3 ml 06/20/24 18:46 06/20/24 18:46 Ipratropium/Albuterol Sulfate 3 Ml Ampul.Neb IH 06/20/24 18:47 3 ml STAT ONE Administration Sodium Chloride 1,000 mls @ 999 mls/hr 06/20/24 18:24 06/20/24 18:45 Sodium Chloride 0.9% 1000 Ml IV 06/20/24 19:24 999 mls/hr .Q1H1M STA Administration Acetaminophen 1,000 mg in 100 mls @ 400 mls/hr 06/20/24 18:26 06/20/24 19:20 Ofirmev IV 06/20/24 18:40 Infused 1HRPRIOR ONE Infusion Ceftriaxone Sodium 1 gm in 100 mls @ 200 mls/hr 06/20/24 18:30 06/20/24 19:20 Rocephin 1 Gm / 100 Ml Nacl IV 06/20/24 18:59 Infused STAT ONE Infusion Azithromycin 500 mg/ Sodium 250 mls @ 250 mls/hr 06/20/24 18:30 Chloride IV 06/20/24 19:29 STAT STA Acetaminophen Confirm 06/20/24 18:39 Ofirmev Administered 06/20/24 18:40 Dose 100 mls @ ud IV .STK-MED ONE Sodium Chloride Confirm 06/20/24 18:39 Sodium Chloride 0.9% 1000 Ml Administered 06/20/24 18:40 Dose 1,000 mls @ ud .ROUTE .STK-MED ONE Ceftriaxone Sodium Confirm 06/20/24 18:39 Rocephin 1 Gm / 100 Ml Nacl Administered 06/20/24 18:40 Dose 1 gm in 100 mls @ ud IV .STK-MED ONE Lab/Rad Data: Laboratory Result Diagrams 06/20/24 18:40 Laboratory Results 06/20/24 06/20/24 06/20/24 Range/Units 19:18 18:40 18:40 WBC 11.9 H (3.98-10.04) x10^3/uL RBC 3.39 L (3.93-5.22) x10^6/uL Hgb 9.6 L (11.2-15.7) g/dL Hct 31.6 L (34.1-44.9) % MCV 93.2 (79.4-94.8) fL MCH 28.3 (25.6-32.2) pg MCHC 30.4 L (32.2-35.5) g/dL RDW 16.7 H (11.7-14.4) % Plt Count 204 (182-369) x10^3/uL MPV 9.8 (9.4-12.3) fL Gran % 82.1 H (34.0-71.1) % Immature Gran % (Auto) 0.5 H (0.001-0.429) % Nucleat RBC Rel Count 0.0 (0.00-0.2) % Eos # (Auto) 0.03 L (0.04-0.36) x10^3/uL Immature Gran # (Auto) 0.06 H (0.001-0.031) x10^3u/L Absolute Lymphs (auto) 1.52 (1.18-3.74) x10^3/uL Absolute Monos (auto) 0.49 (0.24-0.86) x10^3/uL Absolute Nucleated RBC 0.00 (0.00-0.012) x10^3u/L Lymphocytes % 12.8 L (19.3-51.7) % Monocytes % 4.1 L (4.7-12.5) % Eosinophils % 0.3 L (0.7-5.8) % Basophils % 0.2 (0.1-1.2) % Absolute Granulocytes 9.77 H (1.56-6.13) x10^3/uL Basophils # 0.02 (0.01-0.08) x10^3/uL D-Dimer 1.06 H* (0.0-0.50) mg/L pO2/FiO2 Ratio % VBG pH (7.32-7.42) VBG pCO2 at Pat Temp (42-55) mm/Hg VBG pO2 at Pat Temp (25-40) mm/Hg VBG HCO3 (22-28) meq/L VBG O2 Sat (Silver) (95-100) VBG Base Excess (-2.0-2.0) VBG Hemoglobin VBG Carboxyhemoglobin (0.0-6.9) % T HGB POC Potassium (3.5-5.1) Lactic Acid (0.4-2.0) Urine Color Yellow (Yellow) Urine Appearance Clear (Clear) Urine pH 6.5 (4.6-8.0) Ur Specific [place] 1.010 (1.005-1.030) Urine Protein Negative (Negative) Urine Glucose (UA) 500 A (Negative) mg/dL Urine Ketones Negative (Negative) Urine Blood Negative (Negative) Urine Nitrite Negative (Negative) Urine Bilirubin Negative (Negative) Urine Urobilinogen 0.2 (0.2) mg/dL Ur Leukocyte Esterase Negative (Negative) U Hyaline Cast (Auto) NONE SEEN (0-2) /LPF Urine Microscopic RBC 0-2 (0-5) /HPF Urine Microscopic WBC 0-2 (0-5) /HPF Ur Epithelial Cells None Seen (None Seen) /HPF Urine Bacteria None Seen (None Seen) /HPF Urine Culture Reflexed NO (NO) 06/20/24 06/20/24 Range/Units 18:25 18:25 WBC (3.98-10.04) x10^3/uL RBC (3.93-5.22) x10^6/uL Hgb (11.2-15.7) g/dL Hct (34.1-44.9) % MCV (79.4-94.8) fL MCH (25.6-32.2) pg MCHC (32.2-35.5) g/dL RDW (11.7-14.4) % Plt Count (182-369) x10^3/uL MPV (9.4-12.3) fL Gran % (34.0-71.1) % Immature Gran % (Auto) (0.001-0.429) % Nucleat RBC Rel Count (0.00-0.2) % Eos # (Auto) (0.04-0.36) x10^3/uL Immature Gran # (Auto) (0.001-0.031) x10^3u/L Absolute Lymphs (auto) (1.18-3.74) x10^3/uL Absolute Monos (auto) (0.24-0.86) x10^3/uL Absolute Nucleated RBC (0.00-0.012) x10^3u/L Lymphocytes % (19.3-51.7) % Monocytes % (4.7-12.5) % Eosinophils % (0.7-5.8) % Basophils % (0.1-1.2) % Absolute Granulocytes (1.56-6.13) x10^3/uL Basophils # (0.01-0.08) x10^3/uL D-Dimer (0.0-0.50) mg/L pO2/FiO2 Ratio 60.0 % VBG pH 7.42 (7.32-7.42) VBG pCO2 at Pat Temp 70 H* (42-55) mm/Hg VBG pO2 at Pat Temp 55 H (25-40) mm/Hg VBG HCO3 45.4 H* (22-28) meq/L VBG O2 Sat (Silver) 85.4 L (95-100) VBG Base Excess 18.0 H (-2.0-2.0) VBG Hemoglobin 10.4 VBG Carboxyhemoglobin 4.5 (0.0-6.9) % T HGB POC Potassium 3.6 (3.5-5.1) Lactic Acid 1.5 (0.4-2.0) Urine Color (Yellow) Urine Appearance (Clear) Urine pH (4.6-8.0) Ur Specific [place] (1.005-1.030) Urine Protein (Negative) Urine Glucose (UA) (Negative) mg/dL Urine Ketones (Negative) Urine Blood (Negative) Urine Nitrite (Negative) Urine Bilirubin (Negative) Urine Urobilinogen (0.2) mg/dL Ur Leukocyte Esterase (Negative) U Hyaline Cast (Auto) (0-2) /LPF Urine Microscopic RBC (0-5) /HPF Urine Microscopic WBC (0-5) /HPF Ur Epithelial Cells (None Seen) /HPF Urine Bacteria (None Seen) /HPF Urine Culture Reflexed (NO) - Departure Departure Disposition: In-patient Admission Clinical Impression: Respiratory distress Condition: Stable Critical Care Time: No
[2024-06-20] MEDS ORDERED: ROCEPHIN 1 GM / 100 ML NaCl 1 GM/100 ML IVPB IV ONE (18:39)
[2024-06-20] MEDS ORDERED: Sodium Chloride 0.9% 1000 ML 1,000 ML ONE (18:39)
[2024-06-20] MEDS ORDERED: OFIRMEV 100 ML IV ONE (18:39)
[2024-06-20 18:40] LABS: VBG CARBOXYHEMOGLOBIN 4.5 % T HGB (0.0-6.9); VBG HCO3- 45.4 meq/L (22-28); VBG HEMOGLOBIN 10.4; VBG O2 SATURATION 85.4 (95-100); VBG POTASSIUM 3.6 (3.5-5.1); VBG pH 7.42 (7.32-7.42)
[2024-06-20] MEDS: ROCEPHIN 1 GM / 100 ML NaCl 1 GM/100 ML IVPB IV ONE (18:41)
[2024-06-20] MEDS: Sodium Chloride 0.9% 1000 ML 1,000 ML IV STA (18:45)
[2024-06-20] MEDS: DUONEB 0.5-3 MG/3 ml Neb IH ONE (18:46)
[2024-06-20] MEDS: PROVENTIL 2.5 MG/3 ML NEB IH ONE (18:47)
[2024-06-20] MEDS: OFIRMEV 1,000 MG/100 ML ML IV ONE (18:48)
[2024-06-20 19:06] LABS: Absolute Neutrophil Ct (ANC) 9.77 x10^3/uL (1.56-6.13); BASOPHIL % 0.2 % (0.1-1.2); Basophil (Absolute #) 0.02 x10^3/uL (0.01-0.08); Eosinophil % 0.3 % (0.7-5.8); Eosinophil (Absolute #) 0.03 x10^3/uL (0.04-0.36); Hematocrit 31.6 % (34.1-44.9); Hemoglobin 9.6 g/dL (11.2-15.7); IMMATURE GRAN # 0.06 x10^3u/L (0.001-0.031); IMMATURE GRAN % 0.5 % (0.001-0.429); Lymphocyte (Absolute #) 1.52 x10^3/uL (1.18-3.74); Lymphocytes % 12.8 % (19.3-51.7); Mean Cell Volume 93.2 fL (79.4-94.8); Mean Corpuscular Hemoglobin 28.3 pg (25.6-32.2); Mean Corpuscular Hgb Concent. 30.4 g/dL (32.2-35.5); Mean Platelet Volume 9.8 fL (9.4-12.3); Monocyte (Absolute #) 0.49 x10^3/uL (0.24-0.86); Monocytes % 4.1 % (4.7-12.5); Neutrophil % 82.1 % (34.0-71.1); Platelet Count 204 x10^3/uL (182-369); Red Blood Count 3.39 x10^6/uL (3.93-5.22); Red Cell Distribution Width 16.7 % (11.7-14.4); White Blood Count 11.9 x10^3/uL (3.98-10.04)
[2024-06-20 19:20] LABS: ALBUMIN 3.3 g/dL (3.5-5.0); ALKALINE PHOSPHATASE 87 U/L (38-126); BLOOD UREA NITROGEN 17 mg/dL (7-17); CHLORIDE 89 mmol/L (98-107); Calcium 7.2 mg/dL (8.4-10.2); Creatinine 1 0.68 mg/dL (0.52-1.04); EST GLOMERULAR FILTRATION RATE 94.8 ML/MIN; Glucose 108 mg/dL (74-106); Potassium 3.5 mmol/L (3.5-5.1); SGOT/AST 25 U/L (14-36); SGPT/ALT 21 U/L (0-35); SODIUM 140 mmol/L (135-145); Total Protein 5.9 g/dL (6.3-8.2)
[2024-06-20 19:27] LABS: Appearance Clear (Clear); Bacteria None Seen /HPF (None Seen); Bilirubin Negative (Negative); Blood Negative (Negative); Epithelial Cells None Seen /HPF (None Seen); Glucose, Urine 500 mg/dL (Negative); Hyaline Casts NONE SEEN /LPF (0-2); Ketones Negative (Negative); Leukocyte Esterase Negative (Negative); Nitrite Negative (Negative); Ph 6.5 (4.6-8.0); Protein,Urine Dip Negative (Negative); RBC 0-2 /HPF (0-5); Urobilinogen 0.2 mg/dL (0.2); WBC 0-2 /HPF (0-5)
[2024-06-20 19:27] LABS: Carbon Dioxide 39 mmol/L (22-30)
[2024-06-20 19:35] LABS: MAGNESIUM 0.6 mg/dL (1.6-2.3)
[2024-06-20 19:44] LABS: INFLUENZA A NEGATIVE (NEGATIVE); INFLUENZA B NEGATIVE (NEGATIVE); RESPIRATORY SYNCTIAL VIRUS NEGATIVE (NEGATIVE); SARS-CoV-2 Xpert Express NEGATIVE (NEGATIVE)
[2024-06-20 19:52] LABS: TROPONIN 0.082 ng/mL (0.000-0.033)
[2024-06-20] MEDS ORDERED: Sodium Chloride 0.9% 250 ML 250 ML IV ONE (19:53)
[2024-06-20] MEDS ORDERED: ZITHROMAX IV IV ONE (19:53)
[2024-06-20] MEDS: ZITHROMAX IV*** 500 MG in Sodium Chloride 0.9% 250 ML 250 ML IV STA (19:58)
[2024-06-20 20:08] LABS: A-aADO2 185; ABG HEMOGLOBIN 10.3; ABG POTASSIUM 3.3 (3.5-5.1); ARTERIAL BLD GAS O2 SATURATION 98.6 % (95-100); ARTERIAL BLOOD GAS BASE EXCESS 15.8 (-2.0-2.0); ARTERIAL BLOOD GAS FIO2 50 %; ARTERIAL BLOOD GAS PO2 89 mmHg (75-100); ARTERIAL BLOOD GAS pH 7.42 (7.35-7.45); CARBOXYHEMOGLOBIN 1.9 % THgb (0.0-6.9); HCO3- 42.8 (22-28); HGB O2 SAT 95.9 g/dF (94-100); Methhemoglobin 0.8 % (1.4-1.5); paO2 pAO1 0.32
[2024-06-20 20:09] LABS: ABG SITE RIGHT BRACHIAL; ARTERIAL BLOOD GAS PCO2 66 mmHg (35-45)
[2024-06-20] MEDS ORDERED: Magnesium 1 Gm / 100 Ml D5W*** 0 ML IV ONE (21:29)
[2024-06-20 21:33] LABS: A-aADO2 168; ABG HEMOGLOBIN 9.6; ABG POTASSIUM 3.3 (3.5-5.1); ARTERIAL BLOOD GAS BASE EXCESS 15.7 (-2.0-2.0); ARTERIAL BLOOD GAS FIO2 50 %; ARTERIAL BLOOD GAS PO2 111 mmHg (75-100); ARTERIAL BLOOD GAS pH 7.44 (7.35-7.45); CARBOXYHEMOGLOBIN 1.7 % THgb (0.0-6.9); HCO3- 42.1 (22-28); HGB O2 SAT 96.5 g/dF (94-100); Methhemoglobin 0.7 % (1.4-1.5)
[2024-06-20 21:34] LABS: ARTERIAL BLOOD GAS PCO2 62 mmHg (35-45)
[2024-06-20 21:35] LABS: ABG SITE RIGHT BRACHIAL; BIPAP(E) 8; BIPAP(I) 16
[2024-06-20] MEDS ORDERED: Magnesium Sulfate 1 GM/2 ML VIAL ONE (21:38)
[2024-06-20] MEDS: Magnesium Sulfate 1 GM/2 ML VIAL IV ONE (21:38)
--- NOTE | 2024-06-20 23:34 | XRAY ---
CLINICAL HISTORY: SOB; elevated D-dimer COMPARISON: None. TECHNIQUE: Contiguous 3.[address] angiographic images of the chest were acquired with the administration of intravenous contrast 80 cc Isovue 370. Coronal and sagittal reconstructions were obtained. One of these 3D techniques was utilized: Maximum Intensity Pixel (MIP), 3D Reconstructed Images, Volume Rendered Images, Surface Shaded Rendering. One of the following dose reduction techniques were utilized for this exam: Automated exposure control, adjustment of the mA and/or kV according to patient size, and use of iterative reconstruction. FINDINGS: Pulmonary Arteries: Non-homogeneous opacification of the subsegmental branches of pulmonary arteries, due to improper intravenous bolus acquisition timing, leading to simultaneous opacification of pulmonary veins. No evidence of pulmonary embolism in visualized pulmonary arterial tree. Borderline dilatation of main pulmonary trunk, measuring 32 mm. Aorta: The thoracic aorta shows atherosclerotic changes. Mediastinum: Few subcentimetric non-specific mediastinal nodes. Heart: Mild to moderate cardiomegaly. Coronary atherosclerotic vascular calcification. No pericardial effusion. Lungs: Ill-defined subpleural clustered small nodular densities in posterior segment of right upper lobe with few focal subpleural ground-glass densities in left lower lobe, possible acute inflammatory versus infective changes. Subpleural plate atelectatic changes with few atelectatic bands in basal segments of right lower lobe and minimal atelectatic changes in left basal segments. No pleural effusion or thickening. Bones: Degenerative changes in the thoracic spine. Soft Tissues: Normal appearance of the visualized soft tissues. No abnormal masses or fluid collections. Upper Abdomen: Hiatus hernia noted. Multiple radiodense gallbladder calculi. IMPRESSION: 1. Non-homogeneous opacification of the subsegmental branches of pulmonary arteries, due to improper intravenous bolus acquisition timing, leading to simultaneous opacification of pulmonary veins. 2. No evidence of pulmonary embolism in visualized pulmonary arterial tree. 3. Ill-defined subpleural clustered small nodular densities in posterior segment of right upper lobe with few focal subpleural ground-glass densities in left lower lobe, possible acute inflammatory versus infective changes.Recommended clinical correlation. 4. Subpleural plate atelectatic changes with atelectatic bands in basal segments of right lower lobe with minimal atelectatic changes in left basal segments. Electronically Signed by: Celsa Mcdonald MD. (06/20/2024 23:29:54 EDT)
[2024-06-21] MEDS ORDERED: Lasix 40 MG/4 ML ONE (00:03)
[2024-06-21] MEDS: Lasix 40 MG/4 ML IV ONE (00:08)
[2024-06-21] MEDS ORDERED: Zofran 4 MG/2 ML VIAL IV PRN (04:37)
[2024-06-21] MEDS ORDERED: DUONEB 0.5-3 MG/3 ml Neb IH ONE (05:21)
[2024-06-21] MEDS ORDERED: HUMALOG SQ PRN (05:43)
[2024-06-21] MEDS: Advair Hfa 115/21 Common canister IH SCH (05:50)
[2024-06-21] MEDS: DUONEB 0.5-3 MG/3 ml Neb IH SCH (05:50)
[2024-06-21 05:53] LABS: A-aADO2 137; ABG HEMOGLOBIN 9.5; ABG POTASSIUM 3.2 (3.5-5.1); ARTERIAL BLD GAS O2 SATURATION 99.6 % (95-100); ARTERIAL BLOOD GAS BASE EXCESS 18.6 (-2.0-2.0); ARTERIAL BLOOD GAS FIO2 44 %; ARTERIAL BLOOD GAS PCO2 55 mmHg (35-45); ARTERIAL BLOOD GAS PO2 108 mmHg (75-100); ARTERIAL BLOOD GAS pH 7.51 (7.35-7.45); CARBOXYHEMOGLOBIN 4.7 % THgb (0.0-6.9); HCO3- 43.9 (22-28); HGB O2 SAT 94.6 g/dF (94-100); Methhemoglobin 0.4 % (1.4-1.5); paO2 pAO1 0.44
[2024-06-21 05:54] LABS: ABG SITE LEFT BRACHIAL
[2024-06-21] MEDS ORDERED: MAGNESIUM SULF 2 G/50 ML BAG 2 GM/50 ML PIGGYBACK IV SCH ×2 (06:00→07:00)
--- NOTE | 2024-06-21 06:02 | PCM.HP ---
History of Present Illness - Chief Complaint Chief Complaint: CHF Date: 06/21/24 History of Present Illness: is a 69 year old female w/ chronic hypoxic respiratory failure on 3 L/min, HFpEF, COPD, seizure d/o, AF who presents with SOB x 4 days. Gradually getting worse. Worsened with salt and fluids. Her oxygen requirements have increased from 3 L/min to 5 L/min. Reports associated weight gain, lower extremity edema. - Review of Systems Additional Findings: Denies change in bm, dysuria, chest pain. All other ROS is negative unless mentioned above. Medications & Allergies Home Medications: Home Medication List ARIPiprazole [Aripiprazole] 10 mg PO DAILY 05/29/24 [History Confirmed 06/21/24] Albuterol Sulfate [Albuterol Sulfate Hfa] 2 puffs IH Q4H PRN PRN 05/29/24 [Hi story Confirmed 06/21/24] Apixaban [Eliquis] 5 mg PO BID 05/29/24 [History Confirmed 06/21/24] Atorvastatin Calcium 40 mg PO DAILY 05/29/24 [History Confirmed 06/21/24] Bumetanide 1 mg [Bumex 1 mg] 2 mg PO DAILY 05/29/24 [History Confirmed 06/21/24] Clopidogrel Bisulfate [Clopidogrel] 75 mg PO DAILY 05/29/24 [History Confirmed 06/21/24] Ferrous Sulfate [Ferosul] 325 mg PO DAILY 05/29/24 [History Confirmed 06/21/24] Fluoxetine HCl 40 mg PO DAILY 05/29/24 [History Confirmed 06/21/24] Levetiracetam [Keppra] 500 mg PO BID 05/29/24 [History Confirmed 06/21/24] Lisinopril 20 mg [Zestril 20 MG] 20 mg PO DAILY 05/29/24 [History Confirmed 06/21/24] Metoprolol Tartrate 25 mg [Lopressor 25MG Tab] 25 mg PO BID 05/29/24 [History Confirmed 06/21/24] Quetiapine Fumarate [Seroquel] 200 mg PO HS 05/29/24 [History Confirmed 06/21/24] Roflumilast 500 mcg PO DAILY 05/29/24 [History Confirmed 06/21/24] Tizanidine HCl 4 mg [Zanaflex 4 MG] 4 mg PO BID 05/29/24 [History Confirmed 06/21/24] Acetaminophen 325Mg [Feverall 325 mg] 650 mg PO Q4H PRN PRN 06/21/24 [History Confirmed 06/21/24] Ertugliflozin Pidolate [Steglatro] 5 mg PO DAILY 06/21/24 [History Confirmed 06/21/24] Fluticasone Propion/Salmeterol [Fluticasone-Salmeterol 100-50] 1 puff IH BID 06/21/24 [History Confirmed 06/21/24] Hydrocodone/Acetaminophen [Hydrocodone-Acetamin 7.5-325] 1 tab PO Q6H PRN PRN 06/21/24 [History Confirmed 06/21/24] Ipratropium/Albuterol Sulfate [Iprat-Albut 0.5-3(2.5) mg/3 ml] 3 ml IH TID 06/21/24 [History Confirmed 06/21/24] Lanolin/Mineral Oil [Eucerin Original Lotion] 1 applic TOP BID 06/21/24 [History Confirmed 06/21/24] Multivitamin [Multiple Vitamins] 1 tab PO DAILY 06/21/24 [History Confirmed 06/21/24] Omeprazole 40 mg PO DAILY 06/21/24 [History Confirmed 06/21/24] Allergies/Adverse Reactions: Allergies Allergy/AdvReac Type Severity Reaction Status Date / Time latex Allergy Unknown Verified 06/20/24 18:44 - Past Medical History Past Medical History: Yes Neurological History: Seizures ENT History: Macular Degeneration Cardiac History: Other Respiratory History: CHF, COPD, Sleep Apnea Endocrine Medical History: [facility] Disease Musculoskelatal History: Osteoporosis GI Medical History: No Pertinent History History: No Pertinent History Pyscho-Social History: Depression Reproductive Disorders: No Pertinent History Comment: AFIB - Past Surgical History Past Surgical History: Yes Neuro Surgical History: No Pertinent History Cardiac History: No Pertinent History Respiratory Surgery: No Pertinent History GI Surgical History: No Pertinent History Genitourinary Surgical Hx: No Pertinent History Musculskeletal Surgical Hx: Other Female Surgical History: No Pertinent History Other Surgical History: ANKLE SURGERY - Social History Smoking Status: Former smoker Exposure to second hand smoke: Yes Alcohol: None Drug Use: none - Social Determinants of Health Will the patient participate in the screening: Yes Do you worry about a steady place to live?: No Do you have any problems with any of the following?: No known problems In the past 12 months,have you had to go without utilities?: No Have you or anyone in your house had to go without enough: No Transportation Issues: Yes Has anyone in your support network made you feel unsafe?: Yes Does the patient want assistance with any of the above?: No Comment: patient now lives in care home - Physical Exam Vital Signs: Vital Signs - 24 hr Temp Pulse Resp BP BP Pulse Ox 06/21/24 04:37 97.9 F 89 20 127/59 94 L 06/21/24 04:00 84 26 H 140/83 99 06/21/24 03:31 80 21 111/58 100 06/21/24 03:01 86 29 H 138/52 99 06/21/24 02:30 81 27 H 130/63 96 06/21/24 02:00 83 25 H 135/87 97 06/21/24 01:30 83 27 H 146/74 96 06/21/24 01:00 86 26 H 143/78 96 06/21/24 00:30 86 23 133/66 97 06/21/24 00:00 81 28 H 141/68 97 06/20/24 23:56 83 26 H 148/75 06/20/24 23:00 86 28 H 130/89 99 06/20/24 22:01 82 23 117/70 98 06/20/24 21:30 85 30 H 147/79 99 06/20/24 21:01 85 35 H 131/69 98 06/20/24 20:31 101 H 31 H 144/67 99 06/20/24 19:36 99 06/20/24 19:31 104 H 26 H 141/87 100 06/20/24 19:30 115 H 29 H 100 06/20/24 19:20 110 H 27 H 100 06/20/24 19:10 114 H 100 06/20/24 19:03 113 H 30 H 100 06/20/24 18:45 98 06/20/24 18:32 102.2 F 118 H 26 H 123/91 98 06/20/24 18:30 115 H 38 H 123/91 100 06/20/24 18:20 113 H 48 H 99 General Appearance: obese Neurologic Exam: alert, oriented x 3, cooperative, 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6 L (34.1-44.9) % MCV 93.2 (79.4-94.8) fL MCH 28.3 (25.6-32.2) pg MCHC 30.4 L (32.2-35.5) g/dL RDW 16.7 H (11.7-14.4) % Plt Count 204 (182-369) x10^3/uL MPV 9.8 (9.4-12.3) fL Gran % 82.1 H (34.0-71.1) % Immature Gran % (Auto) 0.5 H (0.001-0.429) % Nucleat RBC Rel Count 0.0 (0.00-0.2) % Eos # (Auto) 0.03 L (0.04-0.36) x10^3/uL Immature Gran # (Auto) 0.06 H (0.001-0.031) x10^3u/L Absolute Lymphs (auto) 1.52 (1.18-3.74) x10^3/uL Absolute Monos (auto) 0.49 (0.24-0.86) x10^3/uL Absolute Nucleated RBC 0.00 (0.00-0.012) x10^3u/L Lymphocytes % 12.8 L (19.3-51.7) % Monocytes % 4.1 L (4.7-12.5) % Eosinophils % 0.3 L (0.7-5.8) % Basophils % 0.2 (0.1-1.2) % Absolute Granulocytes 9.77 H (1.56-6.13) x10^3/uL Basophils # 0.02 (0.01-0.08) x10^3/uL D-Dimer (0.0-0.50) mg/L Puncture Site pCO2 (35-45) mmHg pO2 (75-100) mmHg pO2/FiO2 Ratio 60.0 % Base Excess (-2.0-2.0) O2 Saturation (94-100) g/dF ABG pH (7.35-7.45) ABG HCO3 (22-28) ABG O2 Sat (Measured) (95-100) % Jayy Test VBG pH 7.42 (7.32-7.42) VBG pCO2 at Pat Temp 70 H* (42-55) mm/Hg VBG pO2 at Pat Temp 55 H (25-40) mm/Hg VBG HCO3 45.4 H* (22-28) meq/L VBG O2 Sat (Silver) 85.4 L (95-100) VBG Base Excess 18.0 H (-2.0-2.0) VBG Hemoglobin 10.4 VBG Carboxyhemoglobin 4.5 (0.0-6.9) % T HGB A-a Gradient a/A Ratio Hemoglobin Carboxyhemoglobin (0.0-6.9) % THgb Methemoglobin (1.4-1.5) % POC Potassium 3.6 (3.5-5.1) Temperature C POC O2 Flow Rate % Inspiratory BiPAP Expiratory BiPAP Sodium (135-145) mmol/L Potassium (3.5-5.1) mmol/L Chloride (98-107) mmol/L Carbon Dioxide (22-30) mmol/L Anion Gap BUN (7-17) mg/dL Creatinine (0.52-1.04) mg/dL Estimated GFR ML/MIN Glucose (74-106) mg/dL Lactic Acid 1.5 (0.4-2.0) Calcium (8.4-10.2) mg/dL Magnesium (1.6-2.3) mg/dL Total Bilirubin (0.2-1.3) mg/dL AST (14-36) U/L ALT (0-35) U/L Alkaline Phosphatase (38-126) U/L Troponin I (0.000-0.033) ng/mL NT-Pro-B Natriuret Pep (<300) pg/mL Serum Total Protein (6.3-8.2) g/dL Albumin (3.5-5.0) g/dL Urine Color (Yellow) Urine Appearance (Clear) Urine pH (4.6-8.0) Ur Specific [place] (1.005-1.030) Urine Protein (Negative) Urine Glucose (UA) (Negative) mg/dL Urine Ketones (Negative) Urine Blood (Negative) Urine Nitrite (Negative) Urine Bilirubin (Negative) Urine Urobilinogen (0.2) mg/dL Ur Leukocyte Esterase (Negative) U Hyaline Cast (Auto) (0-2) /LPF Urine Microscopic RBC (0-5) /HPF Urine Microscopic WBC (0-5) /HPF Ur Epithelial Cells (None Seen) /HPF Urine Bacteria (None Seen) /HPF Urine Culture Reflexed (NO) Influenza Type A Ag (NEGATIVE) Influenza Type B Ag (NEGATIVE) RSV (PCR) (NEGATIVE) SARS-CoV-2 (PCR) (NEGATIVE) 06/20/24 06/20/24 06/20/24 Range/Units 18:40 18:40 18:40 WBC (3.98-10.04) x10^3/uL RBC (3.93-5.22) x10^6/uL Hgb (11.2-15.7) g/dL Hct (34.1-44.9) % MCV (79.4-94.8) fL MCH (25.6-32.2) pg MCHC (32.2-35.5) g/dL RDW (11.7-14.4) % Plt Count (182-369) x10^3/uL MPV (9.4-12.3) fL Gran % (34.0-71.1) % Immature Gran % (Auto) (0.001-0.429) % Nucleat RBC Rel Count (0.00-0.2) % Eos # (Auto) (0.04-0.36) x10^3/uL Immature Gran # (Auto) (0.001-0.031) x10^3u/L Absolute Lymphs (auto) (1.18-3.74) x10^3/uL Absolute Monos (auto) (0.24-0.86) x10^3/uL Absolute Nucleated RBC (0.00-0.012) x10^3u/L Lymphocytes % (19.3-51.7) % Monocytes % (4.7-12.5) % Eosinophils % (0.7-5.8) % Basophils % (0.1-1.2) % Absolute Granulocytes (1.56-6.13) x10^3/uL Basophils # (0.01-0.08) x10^3/uL D-Dimer (0.0-0.50) mg/L Puncture Site pCO2 (35-45) mmHg pO2 (75-100) mmHg pO2/FiO2 Ratio % Base Excess (-2.0-2.0) O2 Saturation (94-100) g/dF ABG pH (7.35-7.45) ABG HCO3 (22-28) ABG O2 Sat (Measured) (95-100) % Jayy Test VBG pH (7.32-7.42) VBG pCO2 at Pat Temp (42-55) mm/Hg VBG pO2 at Pat Temp (25-40) mm/Hg VBG HCO3 (22-28) meq/L VBG O2 Sat (Silver) (95-100) VBG Base Excess (-2.0-2.0) VBG Hemoglobin VBG Carboxyhemoglobin (0.0-6.9) % T HGB A-a Gradient a/A Ratio Hemoglobin Carboxyhemoglobin (0.0-6.9) % THgb Methemoglobin (1.4-1.5) % POC Potassium (3.5-5.1) Temperature C POC O2 Flow Rate % Inspiratory BiPAP Expiratory BiPAP Sodium 140 (135-145) mmol/L Potassium 3.5 (3.5-5.1) mmol/L Chloride 89 L (98-107) mmol/L Carbon Dioxide 39 H (22-30) mmol/L Anion Gap Not Reportable BUN 17 (7-17) mg/dL Creatinine 0.68 (0.52-1.04) mg/dL Estimated GFR 94.8 ML/MIN Glucose 108 H (74-106) mg/dL Lactic Acid (0.4-2.0) Calcium 7.2 L (8.4-10.2) mg/dL Magnesium 0.6 L* (1.6-2.3) mg/dL Total Bilirubin 0.60 (0.2-1.3) mg/dL AST 25 (14-36) U/L ALT 21 (0-35) U/L Alkaline Phosphatase 87 (38-126) U/L Troponin I 0.082 H* (0.000-0.033) ng/mL NT-Pro-B Natriuret Pep 5700 (<300) pg/mL Serum Total Protein 5.9 L (6.3-8.2) g/dL Albumin 3.3 L (3.5-5.0) g/dL Urine Color (Yellow) Urine Appearance (Clear) Urine pH (4.6-8.0) Ur Specific [place] (1.005-1.030) Urine Protein (Negative) Urine Glucose (UA) (Negative) mg/dL Urine Ketones (Negative) Urine Blood (Negative) Urine Nitrite (Negative) Urine Bilirubin (Negative) Urine Urobilinogen (0.2) mg/dL Ur Leukocyte Esterase (Negative) U Hyaline Cast (Auto) (0-2) /LPF Urine Microscopic RBC (0-5) /HPF Urine Microscopic WBC (0-5) /HPF Ur Epithelial Cells (None Seen) /HPF Urine Bacteria (None Seen) /HPF Urine Culture Reflexed (NO) Influenza Type A Ag NEGATIVE (NEGATIVE) Influenza Type B Ag NEGATIVE (NEGATIVE) RSV (PCR) NEGATIVE (NEGATIVE) SARS-CoV-2 (PCR) NEGATIVE (NEGATIVE) 06/20/24 06/20/24 06/20/24 Range/Units 18:40 19:18 20:00 WBC (3.98-10.04) x10^3/uL RBC (3.93-5.22) x10^6/uL Hgb (11.2-15.7) g/dL Hct (34.1-44.9) % MCV (79.4-94.8) fL MCH (25.6-32.2) pg MCHC (32.2-35.5) g/dL RDW (11.7-14.4) % Plt Count (182-369) x10^3/uL MPV (9.4-12.3) fL Gran % (34.0-71.1) % Immature Gran % (Auto) (0.001-0.429) % Nucleat RBC Rel Count (0.00-0.2) % Eos # (Auto) (0.04-0.36) x10^3/uL Immature Gran # (Auto) (0.001-0.031) x10^3u/L Absolute Lymphs (auto) (1.18-3.74) x10^3/uL Absolute Monos (auto) (0.24-0.86) x10^3/uL Absolute Nucleated RBC (0.00-0.012) x10^3u/L Lymphocytes % (19.3-51.7) % Monocytes % (4.7-12.5) % Eosinophils % (0.7-5.8) % Basophils % (0.1-1.2) % Absolute Granulocytes (1.56-6.13) x10^3/uL Basophils # (0.01-0.08) x10^3/uL D-Dimer 1.06 H* (0.0-0.50) mg/L Puncture Site RIGHT BRACHIAL pCO2 66 H* (35-45) mmHg pO2 89 (75-100) mmHg pO2/FiO2 Ratio % Base Excess 15.8 H (-2.0-2.0) O2 Saturation 95.9 (94-100) g/dF ABG pH 7.42 (7.35-7.45) ABG HCO3 42.8 H* (22-28) ABG O2 Sat (Measured) 98.6 (95-100) % Jayy Test NOT APPLICABLE VBG pH (7.32-7.42) VBG pCO2 at Pat Temp (42-55) mm/Hg VBG pO2 at Pat Temp (25-40) mm/Hg VBG HCO3 (22-28) meq/L VBG O2 Sat (Silver) (95-100) VBG Base Excess (-2.0-2.0) VBG Hemoglobin VBG Carboxyhemoglobin (0.0-6.9) % T HGB A-a Gradient 185 a/A Ratio 0.32 Hemoglobin 10.3 Carboxyhemoglobin 1.9 (0.0-6.9) % THgb Methemoglobin 0.8 L (1.4-1.5) % POC Potassium (3.5-5.1) Temperature 37.0 C POC O2 Flow Rate 50 % Inspiratory BiPAP Expiratory BiPAP Sodium (135-145) mmol/L Potassium 3.3 L (3.5-5.1) mmol/L Chloride (98-107) mmol/L Carbon Dioxide (22-30) mmol/L Anion Gap BUN (7-17) mg/dL Creatinine (0.52-1.04) mg/dL Estimated GFR ML/MIN Glucose (74-106) mg/dL Lactic Acid (0.4-2.0) Calcium (8.4-10.2) mg/dL Magnesium (1.6-2.3) mg/dL Total Bilirubin (0.2-1.3) mg/dL AST (14-36) U/L ALT (0-35) U/L Alkaline Phosphatase (38-126) U/L Troponin I (0.000-0.033) ng/mL NT-Pro-B Natriuret Pep (<300) pg/mL Serum Total Protein (6.3-8.2) g/dL Albumin (3.5-5.0) g/dL Urine Color Yellow (Yellow) Urine Appearance Clear (Clear) Urine pH 6.5 (4.6-8.0) Ur Specific [place] 1.010 (1.005-1.030) Urine Protein Negative (Negative) Urine Glucose (UA) 500 A (Negative) mg/dL Urine Ketones Negative (Negative) Urine Blood Negative (Negative) Urine Nitrite Negative (Negative) Urine Bilirubin Negative (Negative) Urine Urobilinogen 0.2 (0.2) mg/dL Ur Leukocyte Esterase Negative (Negative) U Hyaline Cast (Auto) NONE SEEN (0-2) /LPF Urine Microscopic RBC 0-2 (0-5) /HPF Urine Microscopic WBC 0-2 (0-5) /HPF Ur Epithelial Cells None Seen (None Seen) /HPF Urine Bacteria None Seen (None Seen) /HPF Urine Culture Reflexed NO (NO) Influenza Type A Ag (NEGATIVE) Influenza Type B Ag (NEGATIVE) RSV (PCR) (NEGATIVE) SARS-CoV-2 (PCR) (NEGATIVE) 06/20/24 06/20/24 06/21/24 Range/Units 21:25 22:15 02:40 WBC (3.98-10.04) x10^3/uL RBC (3.93-5.22) x10^6/uL Hgb (11.2-15.7) g/dL Hct (34.1-44.9) % MCV (79.4-94.8) fL MCH (25.6-32.2) pg MCHC (32.2-35.5) g/dL RDW (11.7-14.4) % Plt Count (182-369) x10^3/uL MPV (9.4-12.3) fL Gran % (34.0-71.1) % Immature Gran % (Auto) (0.001-0.429) % Nucleat RBC Rel Count (0.00-0.2) % Eos # (Auto) (0.04-0.36) x10^3/uL Immature Gran # (Auto) (0.001-0.031) x10^3u/L Absolute Lymphs (auto) (1.18-3.74) x10^3/uL Absolute Monos (auto) (0.24-0.86) x10^3/uL Absolute Nucleated RBC (0.00-0.012) x10^3u/L Lymphocytes % (19.3-51.7) % Monocytes % (4.7-12.5) % Eosinophils % (0.7-5.8) % Basophils % (0.1-1.2) % Absolute Granulocytes (1.56-6.13) x10^3/uL Basophils # (0.01-0.08) x10^3/uL D-Dimer (0.0-0.50) mg/L Puncture Site RIGHT BRACHIAL pCO2 62 H* (35-45) mmHg pO2 111 H (75-100) mmHg pO2/FiO2 Ratio % Base Excess 15.7 H (-2.0-2.0) O2 Saturation 96.5 (94-100) g/dF ABG pH 7.44 (7.35-7.45) ABG HCO3 42.1 H* (22-28) ABG O2 Sat (Measured) 99.0 (95-100) % Jayy Test NOT APPLICABLE VBG pH (7.32-7.42) VBG pCO2 at Pat Temp (42-55) mm/Hg VBG pO2 at Pat Temp (25-40) mm/Hg VBG HCO3 (22-28) meq/L VBG O2 Sat (Silver) (95-100) VBG Base Excess (-2.0-2.0) VBG Hemoglobin VBG Carboxyhemoglobin (0.0-6.9) % T HGB A-a Gradient 168 a/A Ratio 0.40 Hemoglobin 9.6 Carboxyhemoglobin 1.7 (0.0-6.9) % THgb Methemoglobin 0.7 L (1.4-1.5) % POC Potassium (3.5-5.1) Temperature 37.0 C POC O2 Flow Rate 50 % Inspiratory BiPAP 16 Expiratory BiPAP 8 Sodium (135-145) mmol/L Potassium 3.3 L (3.5-5.1) mmol/L Chloride (98-107) mmol/L Carbon Dioxide (22-30) mmol/L Anion Gap BUN (7-17) mg/dL Creatinine (0.52-1.04) mg/dL Estimated GFR ML/MIN Glucose (74-106) mg/dL Lactic Acid (0.4-2.0) Calcium (8.4-10.2) mg/dL Magnesium (1.6-2.3) mg/dL Total Bilirubin (0.2-1.3) mg/dL AST (14-36) U/L ALT (0-35) U/L Alkaline Phosphatase (38-126) U/L Troponin I 0.084 H* 0.070 H* (0.000-0.033) ng/mL NT-Pro-B Natriuret Pep (<300) pg/mL Serum Total Protein (6.3-8.2) g/dL Albumin (3.5-5.0) g/dL Urine Color (Yellow) Urine Appearance (Clear) Urine pH (4.6-8.0) Ur Specific [place] (1.005-1.030) Urine Protein (Negative) Urine Glucose (UA) (Negative) mg/dL Urine Ketones (Negative) Urine Blood (Negative) Urine Nitrite (Negative) Urine Bilirubin (Negative) Urine Urobilinogen (0.2) mg/dL Ur Leukocyte Esterase (Negative) U Hyaline Cast (Auto) (0-2) /LPF Urine Microscopic RBC (0-5) /HPF Urine Microscopic WBC (0-5) /HPF Ur Epithelial Cells (None Seen) /HPF Urine Bacteria (None Seen) /HPF Urine Culture Reflexed (NO) Influenza Type A Ag (NEGATIVE) Influenza Type B Ag (NEGATIVE) RSV (PCR) (NEGATIVE) SARS-CoV-2 (PCR) (NEGATIVE) 06/21/24 Range/Units 05:45 WBC (3.98-10.04) x10^3/uL RBC (3.93-5.22) x10^6/uL Hgb (11.2-15.7) g/dL Hct (34.1-44.9) % MCV (79.4-94.8) fL MCH (25.6-32.2) pg MCHC (32.2-35.5) g/dL RDW (11.7-14.4) % Plt Count (182-369) x10^3/uL MPV (9.4-12.3) fL Gran % (34.0-71.1) % Immature Gran % (Auto) (0.001-0.429) % Nucleat RBC Rel Count (0.00-0.2) % Eos # (Auto) (0.04-0.36) x10^3/uL Immature Gran # (Auto) (0.001-0.031) x10^3u/L Absolute Lymphs (auto) (1.18-3.74) x10^3/uL Absolute Monos (auto) (0.24-0.86) x10^3/uL Absolute Nucleated RBC (0.00-0.012) x10^3u/L Lymphocytes % (19.3-51.7) % Monocytes % (4.7-12.5) % Eosinophils % (0.7-5.8) % Basophils % (0.1-1.2) % Absolute Granulocytes (1.56-6.13) x10^3/uL Basophils # (0.01-0.08) x10^3/uL D-Dimer (0.0-0.50) mg/L Puncture Site LEFT BRACHIAL pCO2 55 H (35-45) mmHg pO2 108 H (75-100) mmHg pO2/FiO2 Ratio % Base Excess 18.6 H (-2.0-2.0) O2 Saturation 94.6 (94-100) g/dF ABG pH 7.51 H (7.35-7.45) ABG HCO3 43.9 H* (22-28) ABG O2 Sat (Measured) 99.6 (95-100) % Jayy Test NOT APPLICABLE VBG pH (7.32-7.42) VBG pCO2 at Pat Temp (42-55) mm/Hg VBG pO2 at Pat Temp (25-40) mm/Hg VBG HCO3 (22-28) meq/L VBG O2 Sat (Silver) (95-100) VBG Base Excess (-2.0-2.0) VBG Hemoglobin VBG Carboxyhemoglobin (0.0-6.9) % T HGB A-a Gradient 137 a/A Ratio 0.44 Hemoglobin 9.5 Carboxyhemoglobin 4.7 (0.0-6.9) % THgb Methemoglobin 0.4 L (1.4-1.5) % POC Potassium (3.5-5.1) Temperature 37.0 C POC O2 Flow Rate 44 % Inspiratory BiPAP Expiratory BiPAP Sodium (135-145) mmol/L Potassium 3.2 L (3.5-5.1) mmol/L Chloride (98-107) mmol/L Carbon Dioxide (22-30) mmol/L Anion Gap BUN (7-17) mg/dL Creatinine (0.52-1.04) mg/dL Estimated GFR ML/MIN Glucose (74-106) mg/dL Lactic Acid (0.4-2.0) Calcium (8.4-10.2) mg/dL Magnesium (1.6-2.3) mg/dL Total Bilirubin (0.2-1.3) mg/dL AST (14-36) U/L ALT (0-35) U/L Alkaline Phosphatase (38-126) U/L Troponin I (0.000-0.033) ng/mL NT-Pro-B Natriuret Pep (<300) pg/mL Serum Total Protein (6.3-8.2) g/dL Albumin (3.5-5.0) g/dL Urine Color (Yellow) Urine Appearance (Clear) Urine pH (4.6-8.0) Ur Specific [place] (1.005-1.030) Urine Protein (Negative) Urine Glucose (UA) (Negative) mg/dL Urine Ketones (Negative) Urine Blood (Negative) Urine Nitrite (Negative) Urine Bilirubin (Negative) Urine Urobilinogen (0.2) mg/dL Ur Leukocyte Esterase (Negative) U Hyaline Cast (Auto) (0-2) /LPF Urine Microscopic RBC (0-5) /HPF Urine Microscopic WBC (0-5) /HPF Ur Epithelial Cells (None Seen) /HPF Urine Bacteria (None Seen) /HPF Urine Culture Reflexed (NO) Influenza Type A Ag (NEGATIVE) Influenza Type B Ag (NEGATIVE) RSV (PCR) (NEGATIVE) SARS-CoV-2 (PCR) (NEGATIVE) - Radiology Impressions Radiology Exams & Impressions: Radiology Procedures Category Date Time Status CHEST 1 VIEW (PORTABLE) Stat Exams 06/20/24 18:25 Taken CHEST WITH CONTRAST [CT] Stat Exams 06/20/24 21:23 Completed - Other Procedures and Tests Respiratory Therapy 06/20/24 18:30 BiPap/CPAP STAT 06/20/24 18:48 Respiratory Therapy Assessment DAILY 06/21/24 05:43 Oxygen Nasal Cannula 2 lpm Assessment/Plan (1) Acute and chronic respiratory failure with hypoxia Current Visit: Yes Status: Acute Assessment & Plan: Wean oxygen to baseline Treat underlying causes Code(s): J96.21 - ACUTE AND CHRONIC RESPIRATORY FAILURE WITH HYPOXIA (2) COPD with acute exacerbation Current Visit: Yes Status: Acute Assessment & Plan: nebs iv steroids Code(s): J44.1 - CHRONIC OBSTRUCTIVE PULMONARY DISEASE W (ACUTE) EXACERBATION (3) Pneumonia Current Visit: Yes Status: Acute Assessment & Plan: sending for viral panel follow up blood cxs ctx and doxy for now Code(s): J18.9 - PNEUMONIA, UNSPECIFIED ORGANISM (4) Acute on chronic heart failure with preserved ejection fraction Current Visit: Yes Status: Acute Assessment & Plan: TTE done in the last year continue home meds bumex iv Code(s): I50.33 - ACUTE ON CHRONIC DIASTOLIC (CONGESTIVE) HEART FAILURE (5) Electrolyte abnormality Current Visit: Yes Status: Acute Assessment & Plan: Replacing Mg and K Code(s): E87.8 - OTH DISORDERS OF ELECTROLYTE AND FLUID BALANCE, NEC (6) Atrial fibrillation Current Visit: Yes Status: Acute Assessment & Plan: continue home meds including ac Code(s): I48.91 - UNSPECIFIED ATRIAL FIBRILLATION (7) Seizure Current Visit: Yes Status: Acute Assessment & Plan: continue home meds Code(s): R56.9 - UNSPECIFIED CONVULSIONS (8) Troponin I above reference range Current Visit: Yes Status: Acute Assessment & Plan: no chest pain likely due to HF Code(s): R79.89 - OTHER SPECIFIED ABNORMAL FINDINGS OF BLOOD CHEMISTRY (9) On deep vein thrombosis (DVT) prophylaxis Current Visit: Yes Status: Acute Assessment & Plan: on full dose ac for AF Code(s): Z79.899 - OTHER ALF (CURRENT) DRUG THERAPY Telemedicine Encounter - Telemedicine Encounter Telemedicine Encounter: "The entirety of this encounter was performed via Telemedicine" This visit was performed using real-time audio and video connection between my location and thepatients locationwith the assistance of a surrogateat the patients location. Written or verbal consent was obtained from the patient/guardian to perform this [facility]. Any patient questions regarding the telemedicine interaction were answered.
[2024-06-21] MEDS: Klor Con PO ONE (06:07)
[2024-06-21] MEDS: BUMEX 1 MG IV SCH ×2 (07:42→07:52)
[2024-06-21] MEDS: MAGNESIUM SULF 2 G/50 ML BAG 2 GM/50 ML PIGGYBACK IV SCH (07:48)
[2024-06-21 08:24] LABS: INFLUENZA A NEGATIVE (NEGATIVE); INFLUENZA B NEGATIVE (NEGATIVE); RESPIRATORY SYNCTIAL VIRUS NEGATIVE (NEGATIVE); SARS-CoV-2 Xpert Express NEGATIVE (NEGATIVE)
[2024-06-21 08:37] LABS: Hematocrit 29.1 % (34.1-44.9); Mean Cell Volume 92.4 fL (79.4-94.8); Mean Corpuscular Hemoglobin 28.6 pg (25.6-32.2); Mean Corpuscular Hgb Concent. 30.9 g/dL (32.2-35.5); Mean Platelet Volume 9.5 fL (9.4-12.3); Platelet Count 193 x10^3/uL (182-369); Red Blood Count 3.15 x10^6/uL (3.93-5.22); Red Cell Distribution Width 16.6 % (11.7-14.4); White Blood Count 8.9 x10^3/uL (3.98-10.04)
--- NOTE | 2024-06-21 08:38 | XRAY ---
Indication: Dyspnea. Comparison: June 03, 2024 Portable chest demonstrates new patchy right base infiltrate/atelectasis without consolidation/large effusion. Stable cardiomegaly, small hiatal hernia, mild central vascular prominence, and left midlung subsequent atelectasis/scarring. Bony thorax intact.
[2024-06-21 08:44] LABS: ALBUMIN 3.2 g/dL (3.5-5.0); BILIRUBIN,TOTAL 0.4 mg/dL (0.2-1.3); Calcium 6.7 mg/dL (8.4-10.2); Creatinine 1 0.59 mg/dL (0.52-1.04); EST GLOMERULAR FILTRATION RATE 98.1 ML/MIN; Potassium 3.1 mmol/L (3.5-5.1); Total Protein 5.9 g/dL (6.3-8.2)
[2024-06-21] MEDS: NORCO 7.5/325 MG TAB PO PRN (09:45)
[2024-06-21] MEDS: K-LYTE PO SCH (09:46)
[2024-06-21] MEDS: PLAVIX Tablet PO SCH (09:48)
[2024-06-21] MEDS: Lopressor 25MG Tab PO SCH (09:48)
[2024-06-21] MEDS: Prozac 20 MG PO SCH (09:48)
[2024-06-21] MEDS: ZOCOR 20MG PO SCH (09:48)
[2024-06-21] MEDS: Abilify 10 MG PO SCH (09:48)
[2024-06-21] MEDS: Zestril 20 MG PO SCH (09:49)
[2024-06-21] MEDS: KEPPRA PO SCH (09:49)
[2024-06-21] MEDS: Protonix 40MG Tablet PO SCH (09:49)
[2024-06-21] MEDS: ELIQUIS 2.5 MG TABLET PO SCH (09:49)
[2024-06-21] MEDS: DALIRESP PO SCH (09:49)
[2024-06-21] MEDS: solu-MEDROL 40 MG, Sterile H2O 10 ml 1 ML IV SCH (09:50)
[2024-06-21] MEDS: MAGNESIUM SULF 2 G/50 ML BAG 2 GM/50 ML PIGGYBACK IV ONE (09:55)
[2024-06-21] MEDS ORDERED: LIPITOR 40MG PO SCH (10:00)
[2024-06-21] MEDS ORDERED: solu-MEDROL IV SCH (10:00)
[2024-06-21] MEDS ORDERED: NON-FORMULARY ITEM (Omeprazole [Omeprazole] 40 MG Capsule.Dr) PO SCH (10:00)
[2024-06-21] MEDS ORDERED: VIBRAMYCIN 100 MG*** 100 MG in Dextrose 5%/Water IV Soln. 100ML PLUS BAG 100 ML IV SCH (10:00)
[2024-06-21] MEDS ORDERED: NON-FORMULARY ITEM (Fluoxetine Hcl [Fluoxetine Hcl] 40 MG Capsule) PO SCH (10:00)
[2024-06-21] MEDS ORDERED: NON-FORMULARY ITEM (Apixaban [Eliquis] 5 MG Tablet) PO SCH (10:00)
[2024-06-21] MEDS: ROCEPHIN 2 GM/100 ML NACL 2 GM/100 ML IVPB IV SCH (10:21)
[2024-06-21] MEDS: VIBRAMYCIN 100 MG*** 100 MG in D5w 100ML Mini Bag 100 ML 100 ML IV SCH (10:56)
[2024-06-21 11:15] LABS: ANION GAP 15.1 MEQ/L (5-15)
[2024-06-21 15:53] LABS: Calcium 6.9 mg/dL (8.4-10.2); Creatinine 1 0.71 mg/dL (0.52-1.04); EST GLOMERULAR FILTRATION RATE 92.6 ML/MIN
[2024-06-21] MEDS: PULMICORT 0.5 MG/2 ML RESPULES IH SCH (17:36)
[2024-06-21] MEDS: Seroquel 100 MG PO SCH (21:11)
[2024-06-21] MEDS ORDERED: QUETIAPINE FUMARATE 200 MG PO SCH (22:00)
[2024-06-22 06:21] LABS: Absolute Neutrophil Ct (ANC) 3.41 x10^3/uL (1.56-6.13); BASOPHIL % 0.2 % (0.1-1.2); Basophil (Absolute #) 0.01 x10^3/uL (0.01-0.08); Eosinophil % 0.4 % (0.7-5.8); Eosinophil (Absolute #) 0.02 x10^3/uL (0.04-0.36); Hematocrit 26.7 % (34.1-44.9); Hemoglobin 7.8 g/dL (11.2-15.7); IMMATURE GRAN # 0.03 x10^3u/L (0.001-0.031); IMMATURE GRAN % 0.6 % (0.001-0.429); Lymphocyte (Absolute #) 1.08 x10^3/uL (1.18-3.74); Lymphocytes % 21.9 % (19.3-51.7); Mean Cell Volume 96.4 fL (79.4-94.8); Mean Corpuscular Hemoglobin 28.2 pg (25.6-32.2); Mean Corpuscular Hgb Concent. 29.2 g/dL (32.2-35.5); Mean Platelet Volume 9.7 fL (9.4-12.3); Monocyte (Absolute #) 0.38 x10^3/uL (0.24-0.86); Monocytes % 7.7 % (4.7-12.5); Neutrophil % 69.2 % (34.0-71.1); Platelet Count 180 x10^3/uL (182-369); Red Blood Count 2.77 x10^6/uL (3.93-5.22); Red Cell Distribution Width 16.8 % (11.7-14.4); White Blood Count 4.9 x10^3/uL (3.98-10.04)
[2024-06-22 06:35] LABS: ALBUMIN 2.8 g/dL (3.5-5.0); BILIRUBIN,TOTAL 0.2 mg/dL (0.2-1.3); Calcium 6.7 mg/dL (8.4-10.2); Creatinine 1 0.86 mg/dL (0.52-1.04); EST GLOMERULAR FILTRATION RATE 73.5 ML/MIN; MAGNESIUM 1.9 mg/dL (1.6-2.3); Potassium 3.6 mmol/L (3.5-5.1); Total Protein 5.3 g/dL (6.3-8.2)
[2024-06-22 06:53] LABS: ANION GAP 12.6 MEQ/L (5-15)
[2024-06-22] MEDS: TYLENOL 325 MG PO PRN (07:26)
[2024-06-22] MEDS: Tums EX 750 MG PO SCH (09:09)
--- NOTE | 2024-06-22 09:30 | PCM.NOTE ---
Date and Time: 06/22/24 0917 Subjective Assessment: 06/22/24 is a 69 year old female w/ chronic hypoxic respiratory failure on 3 L/min, HFpEF, COPD, seizure d/o, AF. She presented 06/21/24 with SOB x 4 days. Gradually getting worse. Worsened with salt and fluids. Her oxygen requirements have increased from 3 L/min to 5 L/min. Reports associated weight gain, lower extremity edema. BNP today 5320 improved from admission. She was started on Bumex 1mg Q 12. She had a 4.6 kG weight loss from yesterday when admitted. Mg+ and K+ corrected on admission and WNL today. D-dimer 1.[address] negative for PE. CT chest did show: 1. Non-homogeneous opacification of the subsegmental branches of pulmonary arteries, due to improper intravenous bolus acquisition timing, leading to simultaneous opacification of pulmonary veins.2. No evidence of pulmonary embolism in visualized pulmonary arterial tree. 3. Ill-defined subpleural clustered small nodular densities in posterior segment of right upper lobe with few focal subpleural ground-glass densities in left lower lobe, possible acute inflammatory versus infective changes.Recommended clinical c orrelation. 4. Subpleural plate atelectatic changes with atelectatic bands in basal segments of right lower lobe with minimal atelectatic changes in left basal segments. Continue antibiotics, duonebs, daliresp, steroids, for COPD, pneumonia. She is on 5lNC 94% currently. Will continue to wean O2 to baseline 3lNC. Corrected Ca+ 7.3 and tums BID started. Will check a vitamin D level. Trops trended down and likely elevated 2:2 CHF, COPD, Pneumonia. She is c/o lower back and coxxyx pain with sitting. Pain medication provided. She denies CP, Abd pain. N/V/D. - Review of Systems Constitutional: Weakness, No Fever, No Chills Eyes: No Symptoms Ears, Nose, & Throat: No Symptoms Respiratory: Short Of Breath, No Cough Cardiac: No Chest Pain, No Edema, No Syncope Abdominal/Gastrointestinal: No Abdominal Pain, No Nausea, No Vomiting, No Diarrhea Genitourinary Symptoms: No Dysuria Musculoskeletal: Back Pain, No Neck Pain Skin: No Rash Neurological: No Dizziness, No Focal Weakness, No Sensory Changes Psychological: No Symptoms Endocrine: No Symptoms Hematologic/Lymphatic: No Symptoms Immunological/Allergic: No Symptoms Objective Exam General Appearance: no apparent distress, alert, obese Neurologic Exam: alert, oriented x 3, cooperative, normal mood/affect, nml cerebellar function, sensation nml, No motor deficits Skin Exam: normal color, warm, dry Eye Exam: PERRL, EOMI, eyes nml inspection Ears, Nose, Throat Exam: normal ENT inspection, pharynx normal, moist mucous membranes Neck Exam: normal inspection, non-tender, supple, full range of motion Respiratory Exam: wheezing, No respiratory distress Cardiovascular Exam: regular rate/rhythm, normal heart sounds Gastrointestinal/Abdomen Exam: soft, No tenderness, No mass Extremity Exam: normal inspection, normal range of motion Back Exam: normal inspection, normal range of motion, No CVA tenderness, No vertebral tenderness Pelvic Exam: deferred Rectal Exam: deferred Objective Data Vital Signs: Vital Signs - 24 hr Temp Pulse Resp BP Pulse Ox 06/22/24 08:59 79 101/51 06/22/24 07:56 96.8 F 71 18 88/50 95 06/22/24 06:31 66 18 100 06/22/24 04:00 97.1 F 73 20 106/59 98 06/22/24 01:10 63 18 98 06/21/24 23:53 97.7 F 77 18 108/49 99 06/21/24 20:00 97.1 F 75 19 109/55 100 06/21/24 19:06 74 20 100 06/21/24 16:00 96.8 F 78 21 135/64 100 06/21/24 13:20 76 18 97 06/21/24 11:44 96.9 F 77 20 129/61 97 Pain Assessment - Last Documented Pain Intensity 9 Pain Scale Used 0-10 Pain Scale Intake and Output: Intake & Output 06/19/24 06/20/24 06/21/24 06/22/24 11:59 11:59 11:59 11:59 Intake Total 430 1745 Output Total 2300 1225 Balance -1870 520 Weight 85.9 kg Lab Results: Lab Results-Last 24 Hours 06/21/24 06/21/24 06/21/24 Range/Units 05:40 11:34 15:30 WBC (3.98-10.04) x10^3/uL RBC (3.93-5.22) x10^6/uL Hgb (11.2-15.7) g/dL Hct (34.1-44.9) % MCV (79.4-94.8) fL MCH (25.6-32.2) pg MCHC (32.2-35.5) g/dL RDW (11.7-14.4) % Plt Count (182-369) x10^3/uL MPV (9.4-12.3) fL Gran % (34.0-71.1) % Immature Gran % (Auto) (0.001-0.429) % Nucleat RBC Rel Count (0.00-0.2) % Eos # (Auto) (0.04-0.36) x10^3/uL Immature Gran # (Auto) (0.001-0.031) x10^3u/L Absolute Lymphs (auto) (1.18-3.74) x10^3/uL Absolute Monos (auto) (0.24-0.86) x10^3/uL Absolute Nucleated RBC (0.00-0.012) x10^3u/L Lymphocytes % (19.3-51.7) % Monocytes % (4.7-12.5) % Eosinophils % (0.7-5.8) % Basophils % (0.1-1.2) % Absolute Granulocytes (1.56-6.13) x10^3/uL Basophils # (0.01-0.08) x10^3/uL Sodium 141 (135-145) mmol/L Potassium 4.0 D (3.5-5.1) mmol/L Chloride 88 L (98-107) mmol/L Carbon Dioxide 41 H (22-30) mmol/L Anion Gap 15.1 H 16 H (5-15) MEQ/L BUN 21 H (7-17) mg/dL Creatinine 0.71 (0.52-1.04) mg/dL Estimated GFR 92.6 ML/MIN Glucose 130 H (74-106) mg/dL POC Glucometer 146 H (74 to 106) mg/dL Calcium 6.9 L (8.4-10.2) mg/dL Magnesium (1.6-2.3) mg/dL Total Bilirubin (0.2-1.3) mg/dL AST (14-36) U/L ALT (0-35) U/L Alkaline Phosphatase (38-126) U/L NT-Pro-B Natriuret Pep (<300) pg/mL Serum Total Protein (6.3-8.2) g/dL Albumin (3.5-5.0) g/dL 06/21/24 06/21/24 06/21/24 Range/Units 15:30 16:32 16:32 WBC (3.98-10.04) x10^3/uL RBC (3.93-5.22) x10^6/uL Hgb (11.2-15.7) g/dL Hct (34.1-44.9) % MCV (79.4-94.8) fL MCH (25.6-32.2) pg MCHC (32.2-35.5) g/dL RDW (11.7-14.4) % Plt Count (182-369) x10^3/uL MPV (9.4-12.3) fL Gran % (34.0-71.1) % Immature Gran % (Auto) (0.001-0.429) % Nucleat RBC Rel Count (0.00-0.2) % Eos # (Auto) (0.04-0.36) x10^3/uL Immature Gran # (Auto) (0.001-0.031) x10^3u/L Absolute Lymphs (auto) (1.18-3.74) x10^3/uL Absolute Monos (auto) (0.24-0.86) x10^3/uL Absolute Nucleated RBC (0.00-0.012) x10^3u/L Lymphocytes % (19.3-51.7) % Monocytes % (4.7-12.5) % Eosinophils % (0.7-5.8) % Basophils % (0.1-1.2) % Absolute Granulocytes (1.56-6.13) x10^3/uL Basophils # (0.01-0.08) x10^3/uL Sodium (135-145) mmol/L Potassium (3.5-5.1) mmol/L Chloride (98-107) mmol/L Carbon Dioxide (22-30) mmol/L Anion Gap (5-15) MEQ/L BUN (7-17) mg/dL Creatinine (0.52-1.04) mg/dL Estimated GFR ML/MIN Glucose (74-106) mg/dL POC Glucometer 143 H 143 H (74 to 106) mg/dL Calcium (8.4-10.2) mg/dL Magnesium 2.3 (1.6-2.3) mg/dL Total Bilirubin (0.2-1.3) mg/dL AST (14-36) U/L ALT (0-35) U/L Alkaline Phosphatase (38-126) U/L NT-Pro-B Natriuret Pep (<300) pg/mL Serum Total Protein (6.3-8.2) g/dL Albumin (3.5-5.0) g/dL 06/21/24 06/22/24 06/22/24 Range/Units 20:46 05:30 05:30 WBC 4.9 (3.98-10.04) x10^3/uL RBC 2.77 L (3.93-5.22) x10^6/uL Hgb 7.8 L (11.2-15.7) g/dL Hct 26.7 L (34.1-44.9) % MCV 96.4 H (79.4-94.8) fL MCH 28.2 (25.6-32.2) pg MCHC 29.2 L (32.2-35.5) g/dL RDW 16.8 H (11.7-14.4) % Plt Count 180 L (182-369) x10^3/uL MPV 9.7 (9.4-12.3) fL Gran % 69.2 (34.0-71.1) % Immature Gran % (Auto) 0.6 H (0.001-0.429) % Nucleat RBC Rel Count 0.0 (0.00-0.2) % Eos # (Auto) 0.02 L (0.04-0.36) x10^3/uL Immature Gran # (Auto) 0.03 (0.001-0.031) x10^3u/L Absolute Lymphs (auto) 1.08 L (1.18-3.74) x10^3/uL Absolute Monos (auto) 0.38 (0.24-0.86) x10^3/uL Absolute Nucleated RBC 0.00 (0.00-0.012) x10^3u/L Lymphocytes % 21.9 (19.3-51.7) % Monocytes % 7.7 (4.7-12.5) % Eosinophils % 0.4 L (0.7-5.8) % Basophils % 0.2 (0.1-1.2) % Absolute Granulocytes 3.41 (1.56-6.13) x10^3/uL Basophils # 0.01 (0.01-0.08) x10^3/uL Sodium 138 (135-145) mmol/L Potassium 3.6 (3.5-5.1) mmol/L Chloride 89 L (98-107) mmol/L Carbon Dioxide 40 H (22-30) mmol/L Anion Gap 12.6 (5-15) MEQ/L BUN 25 H (7-17) mg/dL Creatinine 0.86 (0.52-1.04) mg/dL Estimated GFR 73.5 ML/MIN Glucose 98 (74-106) mg/dL POC Glucometer 121 H (74 to 106) mg/dL Calcium 6.7 L (8.4-10.2) mg/dL Magnesium 1.9 (1.6-2.3) mg/dL Total Bilirubin 0.20 (0.2-1.3) mg/dL AST 20 (14-36) U/L ALT 18 (0-35) U/L Alkaline Phosphatase 68 (38-126) U/L NT-Pro-B Natriuret Pep 5320 (<300) pg/mL Serum Total Protein 5.3 L (6.3-8.2) g/dL Albumin 2.8 L (3.5-5.0) g/dL 06/22/24 Range/Units 07:19 WBC (3.98-10.04) x10^3/uL RBC (3.93-5.22) x10^6/uL Hgb (11.2-15.7) g/dL Hct (34.1-44.9) % MCV (79.4-94.8) fL MCH (25.6-32.2) pg MCHC (32.2-35.5) g/dL RDW (11.7-14.4) % Plt Count (182-369) x10^3/uL MPV (9.4-12.3) fL Gran % (34.0-71.1) % Immature Gran % (Auto) (0.001-0.429) % Nucleat RBC Rel Count (0.00-0.2) % Eos # (Auto) (0.04-0.36) x10^3/uL Immature Gran # (Auto) (0.001-0.031) x10^3u/L Absolute Lymphs (auto) (1.18-3.74) x10^3/uL Absolute Monos (auto) (0.24-0.86) x10^3/uL Absolute Nucleated RBC (0.00-0.012) x10^3u/L Lymphocytes % (19.3-51.7) % Monocytes % (4.7-12.5) % Eosinophils % (0.7-5.8) % Basophils % (0.1-1.2) % Absolute Granulocytes (1.56-6.13) x10^3/uL Basophils # (0.01-0.08) x10^3/uL Sodium (135-145) mmol/L Potassium (3.5-5.1) mmol/L Chloride (98-107) mmol/L Carbon Dioxide (22-30) mmol/L Anion Gap (5-15) MEQ/L BUN (7-17) mg/dL Creatinine (0.52-1.04) mg/dL Estimated GFR ML/MIN Glucose (74-106) mg/dL POC Glucometer 82 (74 to 106) mg/dL Calcium (8.4-10.2) mg/dL Magnesium (1.6-2.3) mg/dL Total Bilirubin (0.2-1.3) mg/dL AST (14-36) U/L ALT (0-35) U/L Alkaline Phosphatase (38-126) U/L NT-Pro-B Natriuret Pep (<300) pg/mL Serum Total Protein (6.3-8.2) g/dL Albumin (3.5-5.0) g/dL Radiology Exams: Radiology Procedures Category Date Time Status CHEST 1 VIEW (PORTABLE) Stat Exams 06/20/24 18:25 Completed CHEST WITH CONTRAST [CT] Stat Exams 06/20/24 21:23 Completed Assessment/Plan (1) Pneumonia Current Visit: Yes Status: Acute Assessment & Plan: - Antibiotics, steroids, Duonebs, Daliresp - CBC, CMP reviewed - On 5lNC- BL 3lNC- wean O2 - Wheezing throughout- but improved from yesterday - CXR and CT chest reviewed Code(s): J18.9 - PNEUMONIA, UNSPECIFIED ORGANISM (2) COPD with acute exacerbation Current Visit: Yes Status: Acute Assessment & Plan: - Antibiotics, steroids, Duonebs, Daliresp - CBC, CMP reviewed - On 5lNC- BL 3lNC - Wheezing throughout- but improved from yesterday Code(s): J44.1 - CHRONIC OBSTRUCTIVE PULMONARY DISEASE W (ACUTE) EXACERBATION (3) Acute and chronic respiratory failure with hypoxia Current Visit: Yes Status: Acute Assessment & Plan: -Wean oxygen to baseline- On 5lNC 94%- baseline 3lNC - Treat underlying causes - see COPD and pneumonia plans Code(s): J96.21 - ACUTE AND CHRONIC RESPIRATORY FAILURE WITH HYPOXIA (4) Acute on chronic heart failure with preserved ejection fraction Current Visit: Yes Status: Acute Assessment & Plan: -TTE done in the last year- EF 55-60% TRANSTHORACIC ECHOCARDIOGRAM 06/04/2024: 1. Patient is in sinus rhythm. 2. Moderately dilated left atrium. Mildly dilated right atrium. Normal ventricular chamber sizes. 3. Moderate concentric left ventricular hypertrophy. 4. Normal left ventricular systolic function without focal wall motion abnormalities. Estimated EF 55-60%. 5. Moderate diastolic dysfunction. 6. Normal right ventricular systolic function. 7. Moderate aortic sclerosis without stenosis. 8. Doppler: Mild mitral and tricuspid regurgitation. 9. Mild pulmonary hypertension with an estimated PA systolic pressure 42 mmHg. 10. Mildly elevated right atrial pressure. 11. No pericardial effusion. - Continue home meds - Bumex IV Q12 - Strict I&O, daily weight - BNP 5320 today- improved - 4.6 kg wt loss from yesterday - EKG - TELE - CXR: Portable chest demonstrates new patchy right base infiltrate/atelectasis without consolidation/large effusion. Stable cardiomegaly, small hiatal hernia, mild central vascular prominence, and left midlung subsequent atelectasis/scarring. Bony thorax intact. Code(s): I50.33 - ACUTE ON CHRONIC DIASTOLIC (CONGESTIVE) HEART FAILURE (5) Atrial fibrillation Current Visit: Yes Status: Chronic Assessment & Plan: -Continue home meds - Tele Code(s): I48.91 - UNSPECIFIED ATRIAL FIBRILLATION (6) On deep vein thrombosis (DVT) prophylaxis Current Visit: Yes Status: Chronic Assessment & Plan: - Continue home meds Code(s): Z79.899 - OTHER [employer] (CURRENT) DRUG THERAPY (7) Troponin I above reference range Current Visit: Yes Status: Acute Assessment & Plan: - 2:2 CHF, COPD, pneumonia - trended down - denies CP Code(s): R79.89 - OTHER SPECIFIED ABNORMAL FINDINGS OF BLOOD CHEMISTRY (8) Obesity (BMI 30.0-34.9) Current Visit: No Status: Chronic Assessment & Plan: - Advised diet and exercise control Code(s): E66.811 - OBESITY, CLASS 1 (9) Seizure disorder Current Visit: No Status: Chronic Assessment & Plan: - Continue Keppra Code(s): G40.909 - EPILEPSY, UNSP, NOT INTRACTABLE, WITHOUT STATUS EPILEPTICUS (10) Elevated d-dimer Current Visit: Yes Status: Acute Assessment & Plan: - CT negative for PE Code(s): R79.89 - OTHER SPECIFIED ABNORMAL FINDINGS OF BLOOD CHEMISTRY (11) Electrolyte abnormality Current Visit: Yes Status: Resolved Assessment & Plan: - resolved Code(s): E87.8 - OTH DISORDERS OF ELECTROLYTE AND FLUID BALANCE, NEC (12) Depression Current Visit: No Status: Chronic Qualifiers: Depression Type: major depressive disorder Major depression recurrence: recurrent Assessment & Plan: - Continue home meds Code(s): F32.A - DEPRESSION, UNSPECIFIED (13) Sleep apnea Current Visit: No Status: Chronic Assessment & Plan: - refuses Cpap VTE: Plavix, Eliquis PPI: Protonix Next of KIN: none D/C plan: 1-2 days Code status: SCO/DNR Code(s): G47.30 - SLEEP APNEA, UNSPECIFIED
[2024-06-22] MEDS: VITAMIN D PO SCH (11:11)
[2024-06-22] MEDS: BUMEX 1 MG IV SCH (20:08)
[2024-06-23 04:49] LABS: Hematocrit 26.4 % (34.1-44.9); Mean Cell Volume 93.6 fL (79.4-94.8); Mean Corpuscular Hemoglobin 28.4 pg (25.6-32.2); Mean Corpuscular Hgb Concent. 30.3 g/dL (32.2-35.5); Mean Platelet Volume 9.3 fL (9.4-12.3); Platelet Count 182 x10^3/uL (182-369); Red Blood Count 2.82 x10^6/uL (3.93-5.22); Red Cell Distribution Width 16.3 % (11.7-14.4); White Blood Count 4.5 x10^3/uL (3.98-10.04)
[2024-06-23 05:01] LABS: BILIRUBIN,TOTAL 0.2 mg/dL (0.2-1.3); Calcium 7.1 mg/dL (8.4-10.2); Creatinine 1 0.67 mg/dL (0.52-1.04); EST GLOMERULAR FILTRATION RATE 95.2 ML/MIN; Potassium 4.1 mmol/L (3.5-5.1); Total Protein 5.6 g/dL (6.3-8.2)
[2024-06-23 05:10] LABS: ANION GAP 9.1 MEQ/L (5-15)
--- NOTE | 2024-06-23 05:20 | PCM.NOTE ---
Date and Time: 06/23/24514 Subjective Assessment: Ms. Lopez is a 69-year-old female with chronic hypoxic respiratory failure on 3L NC, HFpEF, COPD, seizure disorder, and AFib presented on 06/21/24 with four days of worsening shortness of breath, fluid retention, and increased oxygen requirements from 3L to 5L NC. She exhibited weight gain and lower extremity edema, with an elevated BNP of 5320, suggestive of volume overload, which has improved with Bumex, leading to a 4.6 kg weight loss since admission. CT angiography was negative for PE but showed findings concerning for pneumonia and atelectasis. She remains on antibiotics, duonebs, Daliresp, and steroids for COPD and pneumonia. Electrolytes, including K+ and Mg+, were corrected on admission and remain stable, but her corrected calcium is low (7.3), prompting initiation of Tums BID and a vitamin D check. Troponins have trended down, likely due to CHF, COPD, and pneumonia. She currently maintains SpO2 at 94% on 5L NC, with plans to wean back to baseline. She also reports lower back and coccyx pain with sitting, for which she has received pain management. Objective Data Vital Signs: Vital Signs - 24 hr Temp Pulse Resp BP Pulse Ox 06/23/24 03:57 96.9 F 75 21 121/54 93 L 06/23/24 01:04 71 16 94 L 06/22/24 23:44 96.9 F 74 15 118/56 92 L 06/22/24 20:00 96.9 F 71 18 121/59 95 06/22/24 18:55 73 16 98 06/22/24 16:00 96.9 F 73 20 109/57 95 06/22/24 13:18 72 18 98 06/22/24 12:50 97 06/22/24 10:32 97.2 F 79 113/56 97 06/22/24 08:59 79 101/51 06/22/24 07:56 96.8 F 71 18 88/50 95 06/22/24 06:31 66 18 100 Pain Assessment - Last Documented Pain Intensity 6 Pain Scale Used 0-10 Pain Scale Intake and Output: Intake & Output 06/20/24 06/21/24 06/22/24 06/23/24 11:59 11:59 11:59 11:59 Intake Total 430 1865 1280 Output Total 4962 7685 1425 Balance -1870 440 -145 Weight 85.9 kg 90.5 kg Lab Results: Lab Results-Last 24 Hours 06/22/24 06/22/24 06/22/24 Range/Units 05:30 05:30 05:30 WBC 4.9 (3.98-10.04) x10^3/uL RBC 2.77 L (3.93-5.22) x10^6/uL Hgb 7.8 L (11.2-15.7) g/dL Hct 26.7 L (34.1-44.9) % MCV 96.4 H (79.4-94.8) fL MCH 28.2 (25.6-32.2) pg MCHC 29.2 L (32.2-35.5) g/dL RDW 16.8 H (11.7-14.4) % Plt Count 180 L (182-369) x10^3/uL MPV 9.7 (9.4-12.3) fL Gran % 69.2 (34.0-71.1) % Immature Gran % (Auto) 0.6 H (0.001-0.429) % Nucleat RBC Rel Count 0.0 (0.00-0.2) % Eos # (Auto) 0.02 L (0.04-0.36) x10^3/uL Immature Gran # (Auto) 0.03 (0.001-0.031) x10^3u/L Absolute Lymphs (auto) 1.08 L (1.18-3.74) x10^3/uL Absolute Monos (auto) 0.38 (0.24-0.86) x10^3/uL Absolute Nucleated RBC 0.00 (0.00-0.012) x10^3u/L Lymphocytes % 21.9 (19.3-51.7) % Monocytes % 7.7 (4.7-12.5) % Eosinophils % 0.4 L (0.7-5.8) % Basophils % 0.2 (0.1-1.2) % Absolute Granulocytes 3.41 (1.56-6.13) x10^3/uL Basophils # 0.01 (0.01-0.08) x10^3/uL Sodium 138 (135-145) mmol/L Potassium 3.6 (3.5-5.1) mmol/L Chloride 89 L (98-107) mmol/L Carbon Dioxide 40 H (22-30) mmol/L Anion Gap 12.6 (5-15) MEQ/L BUN 25 H (7-17) mg/dL Creatinine 0.86 (0.52-1.04) mg/dL Estimated GFR 73.5 ML/MIN Glucose 98 (74-106) mg/dL POC Glucometer (74 to 106) mg/dL Calcium 6.7 L (8.4-10.2) mg/dL Magnesium 1.9 (1.6-2.3) mg/dL Total Bilirubin 0.20 (0.2-1.3) mg/dL AST 20 (14-36) U/L ALT 18 (0-35) U/L Alkaline Phosphatase 68 (38-126) U/L NT-Pro-B Natriuret Pep 5320 (<300) pg/mL Serum Total Protein 5.3 L (6.3-8.2) g/dL Albumin 2.8 L (3.5-5.0) g/dL 25-OH Vitamin D Total < 12.8 L (30-100) ng/mL 06/22/24 06/22/24 06/22/24 Range/Units 07:19 11:46 16:07 WBC (3.98-10.04) x10^3/uL RBC (3.93-5.22) x10^6/uL Hgb (11.2-15.7) g/dL Hct (34.1-44.9) % MCV (79.4-94.8) fL MCH (25.6-32.2) pg MCHC (32.2-35.5) g/dL RDW (11.7-14.4) % Plt Count (182-369) x10^3/uL MPV (9.4-12.3) fL Gran % (34.0-71.1) % Immature Gran % (Auto) (0.001-0.429) % Nucleat RBC Rel Count (0.00-0.2) % Eos # (Auto) (0.04-0.36) x10^3/uL Immature Gran # (Auto) (0.001-0.031) x10^3u/L Absolute Lymphs (auto) (1.18-3.74) x10^3/uL Absolute Monos (auto) (0.24-0.86) x10^3/uL Absolute Nucleated RBC (0.00-0.012) x10^3u/L Lymphocytes % (19.3-51.7) % Monocytes % (4.7-12.5) % Eosinophils % (0.7-5.8) % Basophils % (0.1-1.2) % Absolute Granulocytes (1.56-6.13) x10^3/uL Basophils # (0.01-0.08) x10^3/uL Sodium (135-145) mmol/L Potassium (3.5-5.1) mmol/L Chloride (98-107) mmol/L Carbon Dioxide (22-30) mmol/L Anion Gap (5-15) MEQ/L BUN (7-17) mg/dL Creatinine (0.52-1.04) mg/dL Estimated GFR ML/MIN Glucose (74-106) mg/dL POC Glucometer 82 110 H 153 H (74 to 106) mg/dL Calcium (8.4-10.2) mg/dL Magnesium (1.6-2.3) mg/dL Total Bilirubin (0.2-1.3) mg/dL AST (14-36) U/L ALT (0-35) U/L Alkaline Phosphatase (38-126) U/L NT-Pro-B Natriuret Pep (<300) pg/mL Serum Total Protein (6.3-8.2) g/dL Albumin (3.5-5.0) g/dL 25-OH Vitamin D Total (30-100) ng/mL 06/22/24 06/23/24 06/23/24 Range/Units 20:51 04:30 04:30 WBC 4.5 (3.98-10.04) x10^3/uL RBC 2.82 L (3.93-5.22) x10^6/uL Hgb 8.0 L (11.2-15.7) g/dL Hct 26.4 L (34.1-44.9) % MCV 93.6 (79.4-94.8) fL MCH 28.4 (25.6-32.2) pg MCHC 30.3 L (32.2-35.5) g/dL RDW 16.3 H (11.7-14.4) % Plt Count 182 (182-369) x10^3/uL MPV 9.3 L (9.4-12.3) fL Gran % (34.0-71.1) % Immature Gran % (Auto) (0.001-0.429) % Nucleat RBC Rel Count (0.00-0.2) % Eos # (Auto) (0.04-0.36) x10^3/uL Immature Gran # (Auto) (0.001-0.031) x10^3u/L Absolute Lymphs (auto) (1.18-3.74) x10^3/uL Absolute Monos (auto) (0.24-0.86) x10^3/uL Absolute Nucleated RBC (0.00-0.012) x10^3u/L Lymphocytes % (19.3-51.7) % Monocytes % (4.7-12.5) % Eosinophils % (0.7-5.8) % Basophils % (0.1-1.2) % Absolute Granulocytes (1.56-6.13) x10^3/uL Basophils # (0.01-0.08) x10^3/uL Sodium 136 (135-145) mmol/L Potassium 4.1 (3.5-5.1) mmol/L Chloride 87 L (98-107) mmol/L Carbon Dioxide 44 H (22-30) mmol/L Anion Gap 9.1 (5-15) MEQ/L BUN 24 H (7-17) mg/dL Creatinine 0.67 (0.52-1.04) mg/dL Estimated GFR 95.2 ML/MIN Glucose 110 H (74-106) mg/dL POC Glucometer 130 H (74 to 106) mg/dL Calcium 7.1 L (8.4-10.2) mg/dL Magnesium (1.6-2.3) mg/dL Total Bilirubin 0.20 (0.2-1.3) mg/dL AST 21 (14-36) U/L ALT 18 (0-35) U/L Alkaline Phosphatase 64 (38-126) U/L NT-Pro-B Natriuret Pep (<300) pg/mL Serum Total Protein 5.6 L (6.3-8.2) g/dL Albumin 3.0 L (3.5-5.0) g/dL 25-OH Vitamin D Total (30-100) ng/mL Assessment/Plan (1) Acute and chronic respiratory failure with hypoxia Current Visit: Yes Status: Acute Assessment & Plan: -2/2 to pneumonia/copd - CXR and CT chest reviewed -CT angiography was negative for PE but showed findings concerning for pneumonia and atelectasis -Supplemental oxygen - currently at 5L with goal to wean back to baseline oxygen of 3L -Continue Ceftriaxone/Doxycycline,[id number] daily , Duonebs, and Daliresp - Plan for steroid taper as appropriate -Monitor for hypercapnia and worsening resp status - consider ABG with significant lethargy/hypoxia - CBC, CMP reviewed Code(s): J96.21 - ACUTE AND CHRONIC RESPIRATORY FAILURE WITH HYPOXIA (2) Pneumonia Current Visit: Yes Status: Acute Assessment & Plan: -See ARF Code(s): J18.9 - PNEUMONIA, UNSPECIFIED ORGANISM (3) COPD with acute exacerbation Current Visit: Yes Status: Acute Assessment & Plan: -See ARF Code(s): J44.1 - CHRONIC OBSTRUCTIVE PULMONARY DISEASE W (ACUTE) EXACERBATION (4) Acute on chronic heart failure with preserved ejection fraction Current Visit: Yes Status: Acute Assessment & Plan: -echocardiogram 05/29/24 shows HFpEF with moderate diastolic dysfunction, mild pulmonary hypertension, and atrial dilation, likely from longstanding pressure overload and atrial fibrillation. - CXR with new right basilar infiltrate- likely secondary to pneumonia- no large effusion or consolidation. Stable cardiomegaly and mild pulmonary vascular prom inence suggesting underlying volume overload - Continue home meds - Continue IV Bumex IV Q12 - Strict I&O, daily weight - BNP 5320 - TELE Code(s): I50.33 - ACUTE ON CHRONIC DIASTOLIC (CONGESTIVE) HEART FAILURE (5) Elevated d-dimer Current Visit: Yes Status: Acute Assessment & Plan: - CT negative for PE Code(s): R79.89 - OTHER SPECIFIED ABNORMAL FINDINGS OF BLOOD CHEMISTRY (6) Seizure disorder Current Visit: Yes Status: Acute Assessment & Plan: - Continue Keppra Code(s): G40.909 - EPILEPSY, UNSP, NOT INTRACTABLE, WITHOUT STATUS EPILEPTICUS (7) Troponin I above reference range Current Visit: Yes Status: Acute Assessment & Plan: - Troponins were elevated but trended down, likely secondary to CHF, COPD, and pneumonia, with no acute ischemic changes on EKG - D-dimer was elevated, CT was negative for PE Code(s): R79.89 - OTHER SPECIFIED ABNORMAL FINDINGS OF BLOOD CHEMISTRY (8) Atrial fibrillation Current Visit: Yes Status: Chronic Assessment & Plan: -Continue home meds Eliquis/metoprolol - Tele Code(s): I48.91 - UNSPECIFIED ATRIAL FIBRILLATION (9) On deep vein thrombosis (DVT) prophylaxis Current Visit: Yes Status: Chronic Assessment & Plan: - Continue Eliquis Code(s): Z79.899 - OTHER [employer] (CURRENT) DRUG THERAPY (10) Electrolyte abnormality Current Visit: Yes Status: Resolved Assessment & Plan: - resolved Code(s): E87.8 - OTH DISORDERS OF ELECTROLYTE AND FLUID BALANCE, NEC (11) Depression Current Visit: No Status: Chronic Qualifiers: Depression Type: major depressive disorder Major depression recurrence: recurrent Assessment & Plan: - Continue home meds Code(s): F32.A - DEPRESSION, UNSPECIFIED (12) Obesity (BMI 30.0-34.9) Current Visit: No Status: Chronic Assessment & Plan: - Advised diet and exercise control Code(s): E66.811 - OBESITY, CLASS 1 (13) Sleep apnea Current Visit: No Status: Chronic Assessment & Plan: - refuses Cpap VTE: Plavix, Eliquis PPI: Protonix Next of KIN: none D/C plan: 1-2 days Code status: SCO/DNR Code(s): G47.30 - SLEEP APNEA, UNSPECIFIED
[2024-06-23 08:00] VITALS: RESP 17
[2024-06-23 12:04] VITALS: BP 146/63; PULSE 84; TEMP 97.1; O2SAT 90
--- NOTE | 2024-06-23 13:01 | PCM.DS ---
Discharge Summary Date of Admission: 06/21/24 04:29 Date of Discharge: 06/23/24 Admitting Physician: HI GORDON MD Primary Care Provider: NO FAMILY DOCTOR Allergies Allergies latex Allergy (Unknown, Verified 06/20/24 18:44) Hospital Summary - Hospital Course Hospital Course: Ms. Lopez is a 69-year-old female with chronic hypoxic respiratory failure on 3L NC, HFpEF, COPD, seizure disorder, and AFib presented on 06/21/24 with four days of worsening shortness of breath, fluid retention, and increased oxygen requirements from 3L to 5L NC. She exhibited weight gain and lower extremity edema, with an elevated BNP of 5320, suggestive of volume overload, which has improved with Bumex, leading to a 3.74 lb weight loss since admission. CT angiography was negative for PE but showed findings concerning for pneumonia and atelectasis. She remains on antibiotics, duonebs, Daliresp, and steroids for COPD and pneumonia. Electrolytes, including K+ and Mg+, were corrected on admission and remain stable, but her corrected calcium is low (7.3), prompting initiation of Tums BID and a vitamin D check. Troponins have trended down, likely due to CHF, COPD, and pneumonia. She currently maintains SpO2 at 95% on 3L NC, which is her baseline. She also reports lower back and coccyx pain with sitting, for which she has received pain management. Patient to discharge to [facility] today with continued abx/steroid treatment. She is to continue home diuresis with Bumex 2mg PO. Patient to have daily weights- if there is a > 3lb weight gain in one day or > 5lb in one week - TX to contact PCP. Discharge Note New Diagnosis: CHF/PNA/ Copd exacerbation New Medications: Cefuroxime/prednisone/doxycycline Follow Up: PCP I spent 35 minutes [id number] with the patient on the day of discharge performing discharge exam, discussing hospital stay and discharge instructions with patient and caregivers, preparation of discharge records, prescriptions & referral forms and addressing any questions/concerns the patient had as documented above. - Vitals & Intake/Output Vital Signs: Vital Signs Temperature 97.1 F 06/23/24 12:00 Pulse Rate 84 06/23/24 12:00 Respiratory Rate 17 06/23/24 12:00 Blood Pressure 146/63 06/23/24 12:00 O2 Sat by Pulse Oximetry 90 L 06/23/24 12:00 Intake & Output: Intake & Output 06/21/24 06/22/24 06/23/24 06/24/24 11:59 11:59 11:59 11:59 Intake Total 430 1865 1400 Output Total 2300 1425 2075 Balance -1870 440 -675 Weight 85.9 kg 90.5 kg 88.8 kg 88.8 kg - Lab Result Diagrams: 06/23/24 04:30 06/23/24 04:30 Lab Results-Last 24 Hrs: Lab Results-Last 24 Hours 06/22/24 06/22/24 06/23/24 Range/Units 16:07 20:51 04:30 WBC 4.5 (3.98-10.04) x10^3/uL RBC 2.82 L (3.93-5.22) x10^6/uL Hgb 8.0 L (11.2-15.7) g/dL Hct 26.4 L (34.1-44.9) % MCV 93.6 (79.4-94.8) fL MCH 28.4 (25.6-32.2) pg MCHC 30.3 L (32.2-35.5) g/dL RDW 16.3 H (11.7-14.4) % Plt Count 182 (182-369) x10^3/uL MPV 9.3 L (9.4-12.3) fL Sodium (135-145) mmol/L Potassium (3.5-5.1) mmol/L Chloride (98-107) mmol/L Carbon Dioxide (22-30) mmol/L Anion Gap (5-15) MEQ/L BUN (7-17) mg/dL Creatinine (0.52-1.04) mg/dL Estimated GFR ML/MIN Glucose (74-106) mg/dL POC Glucometer 153 H 130 H (74 to 106) mg/dL Calcium (8.4-10.2) mg/dL Total Bilirubin (0.2-1.3) mg/dL AST (14-36) U/L ALT (0-35) U/L Alkaline Phosphatase (38-126) U/L Serum Total Protein (6.3-8.2) g/dL Albumin (3.5-5.0) g/dL 06/23/24 06/23/24 06/23/24 Range/Units 04:30 07:40 11:54 WBC (3.98-10.04) x10^3/uL RBC (3.93-5.22) x10^6/uL Hgb (11.2-15.7) g/dL Hct (34.1-44.9) % MCV (79.4-94.8) fL MCH (25.6-32.2) pg MCHC (32.2-35.5) g/dL RDW (11.7-14.4) % Plt Count (182-369) x10^3/uL MPV (9.4-12.3) fL Sodium 136 (135-145) mmol/L Potassium 4.1 (3.5-5.1) mmol/L Chloride 87 L (98-107) mmol/L Carbon Dioxide 44 H (22-30) mmol/L Anion Gap 9.1 (5-15) MEQ/L BUN 24 H (7-17) mg/dL Creatinine 0.67 (0.52-1.04) mg/dL Estimated GFR 95.2 ML/MIN Glucose 110 H (74-106) mg/dL POC Glucometer 81 86 (74 to 106) mg/dL Calcium 7.1 L (8.4-10.2) mg/dL Total Bilirubin 0.20 (0.2-1.3) mg/dL AST 21 (14-36) U/L ALT 18 (0-35) U/L Alkaline Phosphatase 64 (38-126) U/L Serum Total Protein 5.6 L (6.3-8.2) g/dL Albumin 3.0 L (3.5-5.0) g/dL Micro Results-Entire Visit: Microbiology 06/20/24 18:50 Blood Culture - Preliminary Blood 06/20/24 18:40 Blood Culture - Preliminary Blood Accuchecks Date 06/23/24 Date 06/23/24 Date 06/22/24 Date 06/22/24 Time 12:02 Time 07:58 Time 20:45 - Procedures and Test Procedures and Tests throughout Hospitalization: Therapy Orders & Screens 06/20/24 18:30 BiPap/CPAP STAT Comment: 06/20/24 18:48 Respiratory Therapy Assessment DAILY Comment: 06/21/24 04:37 EKG REPEAT IN AM Comment: Respiratory Therapy Consult ONCE Comment: Reason For Exam: 06/21/24 05:43 Oxygen Nasal Cannula 2 lpm Comment: Diagnosis: CHF 06/21/24 05:48 Respiratory MDI BID Comment: Diagnosis: CHF Final Diagnosis/Problem List - Final Discharge Diagnosis/Problem (1) Acute and chronic respiratory failure with hypoxia Current Visit: Yes Status: Acute Assessment & Plan: -2/2 to pneumonia/copd - CXR and CT chest reviewed -CT angiography was negative for PE but showed findings concerning for pneumonia and atelectasis -At baseline oxygen of 3L -Continue prednisone/cefuroxime/doxycycline/ Duonebs, and Daliresp as OP Code(s): J96.21 - ACUTE AND CHRONIC RESPIRATORY FAILURE WITH HYPOXIA (2) Pneumonia Current Visit: Yes Status: Acute Assessment & Plan: -See ARF Code(s): J18.9 - PNEUMONIA, UNSPECIFIED ORGANISM (3) COPD with acute exacerbation Current Visit: Yes Status: Acute Assessment & Plan: -See ARF Code(s): J44.1 - CHRONIC OBSTRUCTIVE PULMONARY DISEASE W (ACUTE) EXACERBATION (4) Acute on chronic heart failure with preserved ejection fraction Current Visit: Yes Status: Acute Assessment & Plan: -echocardiogram 05/29/24 shows HFpEF with moderate diastolic dysfunction, mild pulmonary hypertension, and atrial dilation, likely from longstanding pressure overload and atrial fibrillation. - CXR with new right basilar infiltrate- likely secondary to pneumonia- no large effusion or consolidation. Stable cardiomegaly and mild pulmonary vascular prominence suggesting underlying volume overload - Continue home meds - Continue Bumex 2mg PO - Strict I&O, daily weight - BNP 5320 Code(s): I50.33 - ACUTE ON CHRONIC DIASTOLIC (CONGESTIVE) HEART FAILURE (5) Elevated d-dimer Current Visit: Yes Status: Acute Assessment & Plan: - CT negative for PE Code(s): R79.89 - OTHER SPECIFIED ABNORMAL FINDINGS OF BLOOD CHEMISTRY (6) Seizure disorder Current Visit: Yes Status: Acute Assessment & Plan: - Continue Keppra Code(s): G40.909 - EPILEPSY, UNSP, NOT INTRACTABLE, WITHOUT STATUS EPILEPTICUS (7) Troponin I above reference range Current Visit: Yes Status: Acute Assessment & Plan: - Troponins were elevated but trended down, likely secondary to CHF, COPD, and pneumonia, with no acute ischemic changes on EKG - D-dimer was elevated, CT was negative for PE Code(s): R79.89 - OTHER SPECIFIED ABNORMAL FINDINGS OF BLOOD CHEMISTRY (8) Atrial fibrillation Current Visit: Yes Status: Chronic Assessment & Plan: -Continue home meds Eliquis/metoprolol - Tele Code(s): I48.91 - UNSPECIFIED ATRIAL FIBRILLATION (9) On deep vein thrombosis (DVT) prophylaxis Current Visit: Yes Status: Chronic Assessment & Plan: - Continue Eliquis Code(s): Z79.899 - OTHER PLAN CONSULTANT (CURRENT) DRUG THERAPY (10) Electrolyte abnormality Current Visit: Yes Status: Resolved Assessment & Plan: - resolved Code(s): E87.8 - OTH DISORDERS OF ELECTROLYTE AND FLUID BALANCE, NEC (11) Depression Current Visit: No Status: Chronic Qualifiers: Depression Type: major depressive disorder Major depression recurrence: recurrent Assessment & Plan: - Continue home meds Code(s): F32.A - DEPRESSION, UNSPECIFIED (12) Obesity (BMI 30.0-34.9) Current Visit: No Status: Chronic Assessment & Plan: - Advised diet and exercise control Code(s): E66.811 - OBESITY, CLASS 1 (13) Sleep apnea Current Visit: No Status: Chronic Assessment & Plan: - refuses Cpap Code(s): J96.21 - ACUTE AND CHRONIC RESPIRATORY FAILURE WITH HYPOXIA (2) Pneumonia Current Visit: Yes Status: Acute Code(s): J18.9 - PNEUMONIA, UNSPECIFIED ORGANISM (3) COPD with acute exacerbation Current Visit: Yes Status: Acute Code(s): J44.1 - CHRONIC OBSTRUCTIVE PULMONARY DISEASE W (ACUTE) EXACERBATION (4) Acute on chronic heart failure with preserved ejection fraction Current Visit: Yes Status: Acute Code(s): I50.33 - ACUTE ON CHRONIC DIASTOLIC (CONGESTIVE) HEART FAILURE (5) Elevated d-dimer Current Visit: Yes Status: Acute Code(s): R79.89 - OTHER SPECIFIED ABNORMAL FINDINGS OF BLOOD CHEMISTRY (6) Seizure disorder Current Visit: Yes Status: Acute Code(s): G40.909 - EPILEPSY, UNSP, NOT INTRACTABLE, WITHOUT STATUS EPILEPTICUS (7) Troponin I above reference range Current Visit: Yes Status: Acute Code(s): R79.89 - OTHER SPECIFIED ABNORMAL FINDINGS OF BLOOD CHEMISTRY (8) Atrial fibrillation Current Visit: Yes Status: Chronic Code(s): I48.91 - UNSPECIFIED ATRIAL FIBRILLATION (9) On deep vein thrombosis (DVT) prophylaxis Current Visit: Yes Status: Chronic Code(s): Z79.899 - OTHER PLAN CONSULTANT (CURRENT) DRUG THERAPY (10) Electrolyte abnormality Current Visit: Yes Status: Resolved Code(s): E87.8 - OTH DISORDERS OF ELECTROLYTE AND FLUID BALANCE, NEC (11) Depression Current Visit: No Status: Chronic Code(s): F32.A - DEPRESSION, UNSPECIFIED (12) Obesity (BMI 30.0-34.9) Current Visit: No Status: Chronic Code(s): E66.811 - OBESITY, CLASS 1 (13) Sleep apnea Current Visit: No Status: Chronic Code(s): G47.30 - SLEEP APNEA, UNSPECIFIED - Discharge Discharge Date: 06/23/24 Disposition: Home, Self-Care Condition: Stable Prescriptions: New cefuroxime axetiL [Cefuroxime] 500 mg PO BID 10 Days #20 tablet Prednisone 20 mg [Deltasone 20 mg] 20 mg PO BID 5 Days #10 tablet Calcium Carbonate 750 mg [Tums EX 750 MG] 750 mg PO BID tablet Doxycycline Hyclate 100 mg [Vibramycin 100 MG] 100 mg PO BID 7 Days #14 tab Cholecalciferol (Vitamin D3) [Vitamin D] 1,000 unit PO DAILY tablet Continue Quetiapine Fumarate [Seroquel] 200 mg PO HS Atorvastatin Calcium 40 mg PO DAILY Lisinopril 20 mg [Zestril 20 MG] 20 mg PO DAILY Fluoxetine HCl 40 mg PO DAILY Tizanidine HCl 4 mg [Zanaflex 4 MG] 4 mg PO BID Clopidogrel Bisulfate [Clopidogrel] 75 mg PO DAILY Bumetanide 1 mg [Bumex 1 mg] 2 mg PO DAILY ARIPiprazole [Aripiprazole] 10 mg PO DAILY Roflumilast 500 mcg PO DAILY Levetiracetam [Keppra] 500 mg PO BID Apixaban [Eliquis] 5 mg PO BID Metoprolol Tartrate 25 mg [Lopressor 25MG Tab] 25 mg PO BID Ferrous Sulfate [Ferosul] 325 mg PO DAILY Albuterol Sulfate [Albuterol Sulfate Hfa] 2 puffs IH Q4H PRN PRN PRN Reason: shortness of breath Acetaminophen 325Mg [Feverall 325 mg] 650 mg PO Q4H PRN PRN PRN Reason: Fever/pain Lanolin/Mineral Oil [Eucerin Original Lotion] 1 applic TOP BID Fluticasone Propion/Salmeterol [Fluticasone-Salmeterol 100-50] 1 puff IH BID Hydrocodone/Acetaminophen [Hydrocodone-Acetamin 7.5-325] 1 tab PO Q6H PRN PRN PRN Reason: Pain Ipratropium/Albuterol Sulfate [Iprat-Albut 0.5-3(2.5) mg/3 ml] 3 ml IH TID Omeprazole 40 mg PO DAILY Ertugliflozin Pidolate [Steglatro] 5 mg PO DAILY Multivitamin [Multiple Vitamins] 1 tab PO DAILY Additional Instructions: RESUME PREVIOUS NH ORDERS SEE ATTACHED MED LIST Follow up with: DOCTOR,NO FAMILY [Primary Care Provider] -
--- NOTE | 2024-06-23 14:59 | PCM.DS ---
Discharge Summary Date of Admission: 06/21/24 04:29 Date of Discharge: 06/23/24 Admitting Physician: HI GORDON MD Primary Care Provider: NO FAMILY DOCTOR Allergies Allergies latex Allergy (Unknown, Verified 06/20/24 18:44) Hospital Summary - Vitals & Intake/Output Vital Signs: Vital Signs Temperature 97.1 F 06/23/24 12:00 Pulse Rate 84 06/23/24 12:00 Respiratory Rate 17 06/23/24 12:00 Blood Pressure 146/63 06/23/24 12:00 O2 Sat by Pulse Oximetry 90 L 06/23/24 12:00 Intake & Output: Intake & Output 06/21/24 06/22/24 06/23/24 06/24/24 11:59 11:59 11:59 11:59 Intake Total 430 1865 1400 120 Output Total 2300 1425 2075 Balance -1870 440 -675 120 Weight 85.9 kg 90.5 kg 88.8 kg 88.8 kg - Lab Result Diagrams: 06/23/24 04:30 06/23/24 04:30 Lab Results-Last 24 Hrs: Lab Results-Last 24 Hours 06/22/24 06/22/24 06/23/24 Range/Units 16:07 20:51 04:30 WBC 4.5 (3.98-10.04) x10^3/uL RBC 2.82 L (3.93-5.22) x10^6/uL Hgb 8.0 L (11.2-15.7) g/dL Hct 26.4 L (34.1-44.9) % MCV 93.6 (79.4-94.8) fL MCH 28.4 (25.6-32.2) pg MCHC 30.3 L (32.2-35.5) g/dL RDW 16.3 H (11.7-14.4) % Plt Count 182 (182-369) x10^3/uL MPV 9.3 L (9.4-12.3) fL Sodium (135-145) mmol/L Potassium (3.5-5.1) mmol/L Chloride (98-107) mmol/L Carbon Dioxide (22-30) mmol/L Anion Gap (5-15) MEQ/L BUN (7-17) mg/dL Creatinine (0.52-1.04) mg/dL Estimated GFR ML/MIN Glucose (74-106) mg/dL POC Glucometer 153 H 130 H (74 to 106) mg/dL Calcium (8.4-10.2) mg/dL Total Bilirubin (0.2-1.3) mg/dL AST (14-36) U/L ALT (0-35) U/L Alkaline Phosphatase (38-126) U/L Serum Total Protein (6.3-8.2) g/dL Albumin (3.5-5.0) g/dL 06/23/24 06/23/24 06/23/24 Range/Units 04:30 07:40 11:54 WBC (3.98-10.04) x10^3/uL RBC (3.93-5.22) x10^6/uL Hgb (11.2-15.7) g/dL Hct (34.1-44.9) % MCV (79.4-94.8) fL MCH (25.6-32.2) pg MCHC (32.2-35.5) g/dL RDW (11.7-14.4) % Plt Count (182-369) x10^3/uL MPV (9.4-12.3) fL Sodium 136 (135-145) mmol/L Potassium 4.1 (3.5-5.1) mmol/L Chloride 87 L (98-107) mmol/L Carbon Dioxide 44 H (22-30) mmol/L Anion Gap 9.1 (5-15) MEQ/L BUN 24 H (7-17) mg/dL Creatinine 0.67 (0.52-1.04) mg/dL Estimated GFR 95.2 ML/MIN Glucose 110 H (74-106) mg/dL POC Glucometer 81 86 (74 to 106) mg/dL Calcium 7.1 L (8.4-10.2) mg/dL Total Bilirubin 0.20 (0.2-1.3) mg/dL AST 21 (14-36) U/L ALT 18 (0-35) U/L Alkaline Phosphatase 64 (38-126) U/L Serum Total Protein 5.6 L (6.3-8.2) g/dL Albumin 3.0 L (3.5-5.0) g/dL Micro Results-Entire Visit: Microbiology 06/20/24 18:50 Blood Culture - Preliminary Blood 06/20/24 18:40 Blood Culture - Preliminary Blood Accuchecks Date 06/23/24 Date 06/23/24 Date 06/22/24 Date 06/22/24 Time 12:02 Time 07:58 Time 20:45 - Procedures and Test Procedures and Tests throughout Hospitalization: Therapy Orders & Screens 06/20/24 18:30 BiPap/CPAP STAT Comment: 06/20/24 18:48 Respiratory Therapy Assessment DAILY Comment: 06/21/24 04:37 EKG REPEAT IN AM Comment: Respiratory Therapy Consult ONCE Comment: Reason For Exam: 06/21/24 05:43 Oxygen Nasal Cannula 2 lpm Comment: Diagnosis: CHF 06/21/24 05:48 Respiratory MDI BID Comment: Diagnosis: CHF Final Diagnosis/Problem List - Final Discharge Diagnosis/Problem (1) Acute and chronic respiratory failure with hypoxia Current Visit: Yes Status: Acute Code(s): J96.21 - ACUTE AND CHRONIC RESPIRATORY FAILURE WITH HYPOXIA (2) Pneumonia Current Visit: Yes Status: Acute Code(s): J18.9 - PNEUMONIA, UNSPECIFIED ORGANISM (3) COPD with acute exacerbation Current Visit: Yes Status: Acute Code(s): J44.1 - CHRONIC OBSTRUCTIVE PULMONARY DISEASE W (ACUTE) EXACERBATION (4) Acute on chronic heart failure with preserved ejection fraction Current Visit: Yes Status: Acute Code(s): I50.33 - ACUTE ON CHRONIC DIASTOLIC (CONGESTIVE) HEART FAILURE (5) Elevated d-dimer Current Visit: Yes Status: Acute Code(s): R79.89 - OTHER SPECIFIED ABNORMAL FINDINGS OF BLOOD CHEMISTRY (6) Seizure disorder Current Visit: Yes Status: Acute Code(s): G40.909 - EPILEPSY, UNSP, NOT INTRACTABLE, WITHOUT STATUS EPILEPTICUS (7) Troponin I above reference range Current Visit: Yes Status: Acute Code(s): R79.89 - OTHER SPECIFIED ABNORMAL FINDINGS OF BLOOD CHEMISTRY (8) Atrial fibrillation Current Visit: Yes Status: Chronic Code(s): I48.91 - UNSPECIFIED ATRIAL FIBRILLATION (9) On deep vein thrombosis (DVT) prophylaxis Current Visit: Yes Status: Chronic Code(s): Z79.899 - OTHER INDIGO VAT TENDER CLOTH (CURRENT) DRUG THERAPY (10) Electrolyte abnormality Current Visit: Yes Status: Resolved Code(s): E87.8 - OTH DISORDERS OF ELECTR OLYTE AND FLUID BALANCE, NEC (11) Depression Current Visit: No Status: Chronic Code(s): F32.A - DEPRESSION, UNSPECIFIED (12) Obesity (BMI 30.0-34.9) Current Visit: No Status: Chronic Code(s): E66.811 - OBESITY, CLASS 1 (13) Sleep apnea Current Visit: No Status: Chronic Code(s): G47.30 - SLEEP APNEA, UNSPECIFIED - Discharge Disposition: Home, Self-Care Condition: Stable Prescriptions: New cefuroxime axetiL [Cefuroxime] 500 mg PO BID 10 Days #20 tablet Prednisone 20 mg [Deltasone 20 mg] 20 mg PO BID 5 Days #10 tablet Calcium Carbonate 750 mg [Tums EX 750 MG] 750 mg PO BID tablet Doxycycline Hyclate 100 mg [Vibramycin 100 MG] 100 mg PO BID 7 Days #14 tab Cholecalciferol (Vitamin D3) [Vitamin D] 1,000 unit PO DAILY tablet Continue Quetiapine Fumarate [Seroquel] 200 mg PO HS Atorvastatin Calcium 40 mg PO DAILY Lisinopril 20 mg [Zestril 20 MG] 20 mg PO DAILY Fluoxetine HCl 40 mg PO DAILY Tizanidine HCl 4 mg [Zanaflex 4 MG] 4 mg PO BID Clopidogrel Bisulfate [Clopidogrel] 75 mg PO DAILY Bumetanide 1 mg [Bumex 1 mg] 2 mg PO DAILY ARIPiprazole [Aripiprazole] 10 mg PO DAILY Roflumilast 500 mcg PO DAILY Levetiracetam [Keppra] 500 mg PO BID Apixaban [Eliquis] 5 mg PO BID Metoprolol Tartrate 25 mg [Lopressor 25MG Tab] 25 mg PO BID Ferrous Sulfate [Ferosul] 325 mg PO DAILY Albuterol Sulfate [Albuterol Sulfate Hfa] 2 puffs IH Q4H PRN PRN PRN Reason: shortness of breath Acetaminophen 325Mg [Feverall 325 mg] 650 mg PO Q4H PRN PRN PRN Reason: Fever/pain Lanolin/Mineral Oil [Eucerin Original Lotion] 1 applic TOP BID Fluticasone Propion/Salmeterol [Fluticasone-Salmeterol 100-50] 1 puff IH BID Hydrocodone/Acetaminophen [Hydrocodone-Acetamin 7.5-325] 1 tab PO Q6H PRN PRN PRN Reason: Pain Ipratropium/Albuterol Sulfate [Iprat-Albut 0.5-3(2.5) mg/3 ml] 3 ml IH TID Omeprazole 40 mg PO DAILY Ertugliflozin Pidolate [Steglatro] 5 mg PO DAILY Multivitamin [Multiple Vitamins] 1 tab PO DAILY Additional Instructions: RESUME PREVIOUS [facility] ORDERS SEE ATTACHED MED LIST Follow up with: DOCTOR,NO FAMILY [Primary Care Provider] -
== END 2024-06-23 15:41 | DRG 189 ==
LOC: ED 18:17 → MED SURG 06-21 04:29
PROVIDERS: ADMIT Internal Medicine; ATTEND Internal Medicine
DX: J96.21 Acute and chronic respiratory failure with hypoxia (principal); J18.9 Pneumonia, unspecified organism; I50.33 Acute on chronic diastolic (congestive) heart failure; J44.1 Chronic obstructive pulmonary disease with (acute) exacerbation; Z59.82 Transportation insecurity; Z63.79 Other stressful life events affecting family and household; F32.A Depression, unspecified; Z79.01 Long term (current) use of anticoagulants; R79.89 Other specified abnormal findings of blood chemistry; G40.909 Epilepsy, unspecified, not intractable, without status epilepticus; I48.91 Unspecified atrial fibrillation; E87.8 Other disorders of electrolyte and fluid balance, not elsewhere classified; E66.811 Obesity, class 1; G47.33 Obstructive sleep apnea (adult) (pediatric); Z79.899 Other long term (current) drug therapy
CPT/HCPCS: 0241U; 36415; 36600; 51702; 71045; 71260; 80048; 80053; 81001; 82306; 82375; 82803; 82805; 82947; 83605; 83735; 83880; 84484; 85025; 85027; 85379; 87040; 87070; 87254; 93005; 93041; 94002; 94640; 94760; 96374; 96375; 99285; Q3014; J0456; J0696; J1940; J2919; J3475; A9270-GY